=== PATIENT | female | born 1935 | race Caucasian/White ===

== ENCOUNTER 2017-05-19 11:40 | Emergency (ER) | payer MEDICARE, OTHER ==
[2017-05-19 12:36] VITALS: BP 139/67
--- NOTE | 2017-05-19 13:04 | EDM.PDOC ---
ED HPI GENERAL MEDICAL PROBLEM - General Chief Complaint: Neurological Problem Stated Complaint: DIZZY Time Seen by Provider: 05/19/17 12:45 Source of Information: Reports: Patient, Old Records, RN History Limitations: Reports: No Limitations - History of Present Illness INITIAL COMMENTS - FREE TEXT/NARRATIVE: 81 yo female presents with mild dizziness on and off for several weeks. Was seen earlier for this and sent to PT for Diamante's maneuvers. She says she didn't get much if any benefit from these maneuvers. Dizziness is worse with changes in position as when she bends over or rolls over in bed. Doesn't describe the dizziness as spinning and there is no nausea. Has a syncopal spell occurrence this past . returning from the bathroom in the night. Was not seen for this spell before today. It had never happened before or since. Doesn't recall feeling dizzy before passing out. Recalls for a short period of time it seemed she couldn't talk. When her ability to talk returned it was normal. Has no hx of cardiac dysrhythmias or stroke. No EDDY's. No seizure hx. No recent med changes. Has been trying to drink more water lately, but it has not changed her dizziness for the better or the worse. Onset: Unknown/Unsure Duration: Week(s):, Waxing/Waning Location: Reports: Head Quality: Reports: Other (no pain) Severity: Mild Improves with: Reports: Immobilization Worsens with: Reports: Movement Context: Reports: Other (no benefit from Diamante's maneuvers in PT) Associated Symptoms: Reports: Syncope (x one, not necessarily related to the current dizziness.). Denies: Chest Pain, Diaphoresis, Fever/Chills, Headaches, Nausea/Vomiting, Seizure, Shortness of Breath, Weakness Treatments [employer]: Reports: Other (see below) (Diamante's maneuvers in PT without benefit) - Related Data Allergies Allergy/AdvReac Type Severity Reaction Status Date / Time Penicillins Allergy Unknown Unknown Verified 05/19/17 12:22 hydromorphone HCl AdvReac Unknown unknown Verified 05/19/17 12:22 [From Dilaudid] Home Meds: Home Meds Tylenol 500 mg PO BEDTIME 01/06/13 [History] Hydrochlorothiazide [Hydrochlorothiazide] 25 mg PO DAILY 01/16/13 [History] Metoprolol Tartrate 50 mg PO TID 01/16/13 [History] hydrOXYzine HCl [Atarax] 10 mg PO BEDTIME 01/16/13 [History] Chlorthalidone 1 tab PO DAILY 05/19/17 [History] Meclizine [Antivert] 1 tab PO TID PRN 05/19/17 [History] Methimazole [Methimazole] 0.5 tab PO DAILY 05/19/17 [History] Past Medical History HEENT History: Reports: Cataract Musculoskeletal History: Reports: Back Pain, Chronic Neurological History: Reports: Vertigo Endocrine/Metabolic History: Reports: Hypothyroidism - Past Surgical History HEENT Surgical History: Reports: Tonsillectomy GI Surgical History: Reports: Appendectomy Female Surgical History: Reports: Hysterectomy Endocrine Surgical History: Reports: Thyroidectomy Musculoskeletal Surgical History: Reports: Knee Replacement Social & Family History - Tobacco Use Smoking Status *Q: Never Smoker Second Hand Smoke Exposure: No - Alcohol Use Days Per Week of Alcohol Use: 0 - Recreational Drug Use Recreational Drug Use: No ED ROS GENERAL - Review of Systems Review Of Systems: See Below Constitutional: Reports: No Symptoms HEENT: Reports: No Symptoms Respiratory: Reports: No Symptoms Cardiovascular: Reports: Syncope (x one last Sunday.) Endocrine: Reports: No Symptoms GI/Abdominal: Reports: No Symptoms : Reports: No Symptoms Musculoskeletal: Reports: No Symptoms Skin: Reports: No Symptoms Neurological: Reports: Dizziness (mild, intermittent), Trouble Speaking (only briefly after a syncopal spell last Sunday.). Denies: Headache, Numbness, Tingling Psychiatric: Reports: No Symptoms Hematologic/Lymphatic: Reports: No Symptoms ED EXAM, NEURO - Physical Exam Exam: See Below Exam Limited By: No Limitations General Appearance: Alert, WD/WN, No Apparent Distress Eye Exam: Bilateral Eye: EOMI, Normal Inspection, PERRL Ears: Normal External Exam, Normal Canal, Hearing Grossly Normal, Normal TMs Nose: Normal Inspection, Normal Mucosa, No Blood Throat/Mouth: Normal Inspection, Normal Lips, Normal Teeth, Normal Oropharynx, Normal Voice, No Airway Compromise Head Exam: Atraumatic, Normocephalic Neck: Normal Inspection, Supple, Non-Tender, Full Range of Motion. No: Carotid Bruit, Lymphadenopathy (R), Lymphadenopathy (L) Respiratory/Chest: No Respiratory Distress, Lungs Clear, Normal Breath Sounds, No Accessory Muscle Use Cardiovascular: Regular Rate, Rhythm, No Edema GI/Abdominal: Soft, Non-Tender Neurological: Alert, Normal Mood/Affect, CN II-XII Intact, Normal Gait, No Motor /Sensory Deficits, Oriented x 3 Back Exam: Normal Inspection Extremities: Normal Inspection, Normal Range of Motion, Non-Tender, No Pedal Edema Psychiatric: Normal Affect, Normal Mood Skin Exam: Warm, Dry, Intact, Normal Color, No Rash Course - Vital Signs Text/Narrative:: Orthostats normal Last Recorded V/S: Last Vital Signs Temp 36.6 C 05/19/17 12:34 Pulse 64 05/19/17 12:34 Resp 14 05/19/17 12:34 BP 139/67 05/19/17 12:34 Pulse Ox 97 05/19/17 12:34 Orthostatic Blood Pressure [ 139/74 Standing] Orthostatic Blood Pressure [ 130/72 Sitting] Orthostatic Blood Pressure [ 132/76 Supine] - Orders/Labs/Meds Orders: Active Orders 24 hr Category Date Time Status Orthostatic Vital Signs [RC] ASDIRECTED Care 05/19/17 12:41 Active Labs: Laboratory Tests 05/19/17 05/19/17 Range/Units 12:51 12:51 WBC 8.9 (4.5-11.0) K/uL RBC 4.30 (3.30-5.50) M/uL Hgb 12.8 (12.0-15.0) g/dL Hct 37.2 (36.0-48.0) % MCV 87 (80-98) fL MCH 30 (27-31) pg MCHC 34 (32-36) % Plt Count 276 (150-400) K/uL Sodium 134 L (140-148) mmol/L Potassium 3.6 (3.6-5.2) mmol/L Chloride 95 L (100-108) mmol/L Carbon Dioxide 29 (21-32) mmol/L Anion Gap 13.6 (5.0-14.0) mmol/L BUN 26 H (7-18) mg/dL Creatinine 1.4 H (0.6-1.0) mg/dL Est Cr Clr Drug Dosing 26.95 mL/min Estimated GFR (MDRD) 36 L (>60) Glucose 109 H (74-106) mg/dL Calcium 9.5 (8.5-10.1) mg/dL Troponin I < 0.017 (0.000-0.056) ng/mL Departure - Departure Time of Disposition: 14:00 Disposition: Home, Self-Care 01 Condition: Good Clinical Impression: BPV (benign positional vertigo) Qualifiers: Laterality: unspecified laterality Qualified Code(s): H81.10 - Benign paroxysmal vertigo, unspecified ear Syncope Qualifiers: Syncope type: unspecified Qualified Code(s): R55 - Syncope and collapse - Discharge Information Referrals: Gadiel Ortiz MD [Primary Care Provider] - Forms: ED Department Discharge - My Orders Last 24 Hours: My Active Orders 05/19/17 12:41 Orthostatic Vital Signs [RC] ASDIRECTED - Assessment/Plan Last 24 Hours: My Active Orders 05/19/17 12:41 Orthostatic Vital Signs [RC] ASDIRECTED
[2017-05-19] MEDS ORDERED: Aspirin 81 MG Tab.Chew PO ONE (14:00)
== END 2017-05-19 14:13 | disposition home or self-care (01) ==
LOC: JP.ED 11:40
DX: H81.10 Benign paroxysmal vertigo, unspecified ear (principal); E03.9 Hypothyroidism, unspecified; Z79.899 Other long term (current) drug therapy; Z88.0 Allergy status to penicillin; Z88.5 Allergy status to narcotic agent
CPT/HCPCS: 36415; 80048; 84484; 85027; 99284; A9270

== ENCOUNTER 2017-05-25 15:13 | Inpatient (IN) | payer MEDICARE, OTHER ==
[2017-05-25] MEDS ORDERED: Sodium Chloride 0.9% 1,000 ML IV SCH ×2 (16:45→18:30)
--- NOTE | 2017-05-25 17:12 | EDM.PDOC ---
ED HPI GENERAL MEDICAL PROBLEM - General Chief Complaint: General Stated Complaint: ILLNESS Time Seen by Provider: 05/25/17 17:07 Source of Information: Reports: Patient History Limitations: Reports: No Limitations - History of Present Illness INITIAL COMMENTS - FREE TEXT/NARRATIVE: Pt arrived with a history of being ill for the past 2-3 weeks. She is not eating. She gives a history of chronic constipatipon and left lower abdomanal pain. She has been sob. She has a history of falling 3 times in the last wwek/ The one episode was a true synopal episode and she did hit the left forehead area. She was not knocked out. She did have a stool this am and she states this was soft. She has not been having headaches. She has been taking fluids but not eating. She has lost 20 lbs in the last 2 weeks. She has been seen twice at the ER prior to this visit. Onset: Gradual Duration: Day(s): Location: Reports: Head, Abdomen, Other (pt has lost close to 20 lbs. She has passed out twice in the lasty week. ) Quality: Reports: Sharp, Stabbing, Other ( The pain has not been there all of the time. ) Associated Symptoms: Reports: Cough, Fever/Chills, Weakness, Other ( Pt has spiked a temp to 101 at times. ) - Related Data Allergies Allergy/AdvReac Type Severity Reaction Status Date / Time Penicillins Allergy Unknown Unknown Verified 05/25/17 15:31 hydromorphone HCl AdvReac Unknown unknown Verified 05/25/17 15:31 [From Dilaudid] Home Meds: Home Meds Tylenol 500 mg PO BEDTIME 01/06/13 [History] Hydrochlorothiazide [Hydrochlorothiazide] 25 mg PO DAILY 01/16/13 [History] Chlorthalidone 1 tab PO DAILY 05/19/17 [History] Methimazole [Methimazole] 0.5 tab PO DAILY 05/19/17 [History] Metoprolol Succinate 1 tab PO TID 05/25/17 [History] Sertraline [Zoloft] 1 tab PO DAILY 05/25/17 [History] Valsartan [Valsartan] 1 tab PO DAILY 05/25/17 [History] Past Medical History HEENT History: Reports: Cataract Musculoskeletal History: Reports: Back Pain, Chronic Neurological History: Reports: Vertigo Endocrine/Metabolic History: Reports: Hypothyroidism - Past Surgical History HEENT Surgical History: Reports: Tonsillectomy GI Surgical History: Reports: Appendectomy Female Surgical History: Reports: Hysterectomy Endocrine Surgical History: Reports: Thyroidectomy Musculoskeletal Surgical History: Reports: Knee Replacement Social & Family History - Tobacco Use Smoking Status *Q: Never Smoker Second Hand Smoke Exposure: No - Alcohol Use Days Per Week of Alcohol Use: 0 - Recreational Drug Use Recreational Drug Use: No ED ROS GENERAL - Review of Systems Review Of Systems: See Below Constitutional: Reports: Fever, Chills, Malaise, Decreased Appetite, Weight Loss , Other (pt has lost 20 lbs in the last 2 weeks. ) HEENT: Reports: No Symptoms Respiratory: Reports: No Symptoms Cardiovascular: Reports: No Symptoms Endocrine: Reports: No Symptoms GI/Abdominal: Reports: Abdominal Pain, Other (crampy abdomanal pain. ) : Reports: No Symptoms Musculoskeletal: Reports: No Symptoms Skin: Reports: No Symptoms Neurological: Reports: Other (pt is very weak ans somewhat slow to respond. ) Psychiatric: Reports: No Symptoms ED EXAM, GENERAL - Physical Exam Exam: See Below Free Text/Narrative:: pt arrived looking quite sluggish and pale. She is not her usuial perky self. Exam Limited By: No Limitations General Appearance: Alert, Anxious, Mild Distress Ears: Normal TMs Nose: Normal Inspection Throat/Mouth: Normal Inspection Head: Atraumatic Neck: Normal Inspection Respiratory/Chest: Other ( rales at the lung) Cardiovascular: Regular Rate, Rhythm GI/Abdominal: Tender, Other ( Pt has a left lower abdomanal tenderness. She is not markedly guarded. ) (Female) Exam: Deferred Rectal (Female) Exam: Other (pt had a soft stool this am. ) Extremities: Normal Inspection Neurological: Alert, Oriented, Normal Cognition Psychiatric: Flat Affect Course - Vital Signs Last Recorded V/S: Last Vital Signs Temp 36.2 C 05/26/17 02:12 Pulse 78 05/26/17 02:12 Resp 18 05/26/17 02:12 BP 138/77 05/26/17 02:12 Pulse Ox 94 L 05/26/17 02:12 Orthostatic Blood Pressure [ 160/72 Standing] Orthostatic Blood Pressure [ 162/82 Sitting] Orthostatic Blood Pressure [ 160/79 Supine] - Orders/Labs/Meds Orders: Active Orders 24 hr Category Date Time Status Abdomen Pelvis w Cont [CT] Stat Exams 05/25/17 17:51 Taken Ang Chest [CT] Stat Exams 05/25/17 17:47 Taken Chest 2V [CR] Stat Exams 05/25/17 16:30 Taken CULTURE BLOOD [BC] Urgent Lab 05/25/17 19:18 Received CULTURE BLOOD [BC] Urgent Lab 05/25/17 19:18 Received CULTURE URINE [RM] Stat Lab 05/25/17 21:01 Received cefTRIAXone [Rocephin] 1 gm Med 05/25/17 20:00 Active Sodium Chloride 0.9% [Normal Saline] 50 ml IV Q24H Blood Culture x2 Reflex Set [OM.PC] Urgent Oth 05/25/17 19:18 Ordered EKG 12 Lead [EK] Routine Ther 05/25/17 17:36 Stop Req Medication Orders Acetaminophen (Tylenol) 650 mg PO Q4H PRN PRN Reason: Pain (Mild 1-3)/fever Last Admin: 05/26/17 04:03 Dose: 650 mg Admin: 05/25/17 22:15 Dose: 650 mg Chlorthalidone (Chlorthalidone) 25 mg PO DAILY [facility] Enoxaparin Sodium (Lovenox) 40 mg SUBCUT DAILY [facility] Last Admin: 05/25/17 22:36 Dose: 40 mg Hydrochlorothiazide (Hydrochlorothiazide) 25 mg PO DAILY [facility] Ceftriaxone Sodium 1 gm/ (Sodium Chloride) 50 mls @ 100 mls/hr IV Q24H [facility] Last Admin: 05/25/17 22:16 Dose: 100 mls/hr Sodium Chloride (Normal Saline) 1,000 mls @ 125 mls/hr IV ASDIRECTED [facility] Last Admin: 05/26/17 04:09 Dose: 125 mls/hr Infusion: 05/26/17 04:09 Dose: 125 mls/hr Admin: 05/25/17 22:14 Dose: 125 mls/hr Magnesium Hydroxide (Milk Of Magnesia) 30 ml PO Q12H PRN PRN Reason: Constipation Methimazole (Methimazole) 2.5 mg PO DAILY [facility] Metoprolol Succinate (Toprol Xl) mg PO TID [facility] Ondansetron HCl (Zofran) 4 mg IV Q4H PRN PRN Reason: Nausea/Vomiting Last Admin: 05/26/17 04:03 Dose: 4 mg Admin: 05/25/17 22:14 Dose: 4 mg Oxycodone HCl (Oxycodone) 5 mg PO Q4H PRN PRN Reason: Pain (moderate 4-6) Polyethylene Glycol (Miralax) 17 gm PO DAILY PRN PRN Reason: Constipation Senna/Docusate Sodium (Senna Plus) 1 tab PO BID PRN PRN Reason: Constipation Sertraline HCl (Zoloft) 25 mg PO DAILY [facility] Sodium Chloride (Saline Flush) 10 ml FLUSH ASDIRECTED PRN PRN Reason: Keep Vein Open Valsartan (Diovan) 320 mg PO DAILY [facility] Labs: Laboratory Tests 05/25/17 05/25/17 05/25/17 Range/Units 16:29 16:29 16:29 WBC 17.1 H (4.5-11.0) K/uL RBC 3.99 (3.30-5.50) M/uL Hgb 12.1 (12.0-15.0) g/dL Hct 35.2 L (36.0-48.0) % MCV 88 (80-98) fL MCH 30 (27-31) pg MCHC 34 (32-36) % Plt Count 256 (150-400) K/uL Add Manual Diff Yes Neutrophils % (Manual) 77 H (36-66) % Band Neutrophils % 10 (5-11) % Lymphocytes % (Manual) 5 L (24-44) % Monocytes % (Manual) 8 H (2-6) % D-Dimer, Quantitative (0.0-400.0) ng/mL Sodium 137 L (140-148) mmol/L Potassium 2.6 L* (3.6-5.2) mmol/L Chloride 98 L (100-108) mmol/L Carbon Dioxide 28 (21-32) mmol/L Anion Gap 13.6 (5.0-14.0) mmol/L BUN 25 H (7-18) mg/dL Creatinine 1.2 H (0.6-1.0) mg/dL Est Cr Clr Drug Dosing 31.45 mL/min Estimated GFR (MDRD) 43 L (>60) Glucose 124 H (74-106) mg/dL Lactic Acid (0.4-2.0) mmol/L Calcium 9.0 (8.5-10.1) mg/dL Total Bilirubin 0.5 (0.2-1.0) mg/dL AST 17 (15-37) U/L ALT 20 (12-78) U/L Alkaline Phosphatase 83 (46-116) U/L Troponin I (0.000-0.056) ng/mL C-Reactive Protein 30.20 H (0.0-0.3) mg/dL Total Protein 6.3 L (6.4-8.2) g/dL Albumin 2.6 L (3.4-5.0) g/dL Globulin 3.7 H (2.3-3.5) g/dL Albumin/Globulin Ratio 0.7 L (1.2-2.2) TSH, Ultra Sensitive (0.358-3.740) uIU/mL Urine Color Urine Appearance Urine pH (4.5-8.0) Ur Specific Dearing (1.008-1.030) Urine Protein (NEGATIVE) mg/dL Urine Glucose (UA) (NEGATIVE) mg/dL Urine Ketones (NEGATIVE) mg/dL Urine Occult Blood (NEGATIVE) Urine Nitrite (NEGATIVE) Urine Bilirubin (NEGATIVE) Urine Urobilinogen (NORMAL) mg/dL Ur Leukocyte Esterase (NEGATIVE) Urine RBC (0-5) Urine WBC (0-5) Ur Epithelial Cells Amorphous Sediment Urine Bacteria Urine Mucus 05/25/17 05/25/17 05/25/17 Range/Units 17:15 17:37 19:19 WBC (4.5-11.0) K/uL RBC (3.30-5.50) M/uL Hgb (12.0-15.0) g/dL Hct (36.0-48.0) % MCV (80-98) fL MCH (27-31) pg MCHC (32-36) % Plt Count (150-400) K/uL Add Manual Diff Neutrophils % (Manual) (36-66) % Band Neutrophils % (5-11) % Lymphocytes % (Manual) (24-44) % Monocytes % (Manual) (2-6) % D-Dimer, Quantitative 1800 H (0.0-400.0) ng/mL Sodium (140-148) mmol/L Potassium (3.6-5.2) mmol/L Chloride (100-108) mmol/L Carbon Dioxide (21-32) mmol/L Anion Gap (5.0-14.0) mmol/L BUN (7-18) mg/dL Creatinine (0.6-1.0) mg/dL Est Cr Clr Drug Dosing mL/min Estimated GFR (MDRD) (>60) Glucose (74-106) mg/dL Lactic Acid (0.4-2.0) mmol/L Calcium (8.5-10.1) mg/dL Total Bilirubin (0.2-1.0) mg/dL AST (15-37) U/L ALT (12-78) U/L Alkaline Phosphatase (46-116) U/L Troponin I < 0.017 (0.000-0.056) ng/mL C-Reactive Protein (0.0-0.3) mg/dL Total Protein (6.4-8.2) g/dL Albumin (3.4-5.0) g/dL Globulin (2.3-3.5) g/dL Albumin/Globulin Ratio (1.2-2.2) TSH, Ultra Sensitive (0.358-3.740) uIU/mL Urine Color Yellow Urine Appearance Cloudy Urine pH 5.0 (4.5-8.0) Ur Specific Dearing 1.010 (1.008-1.030) Urine Protein Negative (NEGATIVE) mg/dL Urine Glucose (UA) Normal (NEGATIVE) mg/dL Urine Ketones Negative (NEGATIVE) mg/dL Urine Occult Blood Moderate (NEGATIVE) Urine Nitrite Negative (NEGATIVE) Urine Bilirubin Negative (NEGATIVE) Urine Urobilinogen Normal (NORMAL) mg/dL Ur Leukocyte Esterase Large (NEGATIVE) Urine RBC Not seen (0-5) Urine WBC Packed H (0-5) Ur Epithelial Cells Not seen Amorphous Sediment Not seen Urine Bacteria Moderate Urine Mucus Not seen 05/25/17 05/25/17 Range/Units 19:22 19:22 WBC (4.5-11.0) K/uL RBC (3.30-5.50) M/uL Hgb (12.0-15.0) g/dL Hct (36.0-48.0) % MCV (80-98) fL MCH (27-31) pg MCHC (32-36) % Plt Count (150-400) K/uL Add Manual Diff Neutrophils % (Manual) (36-66) % Band Neutrophils % (5-11) % Lymphocytes % (Manual) (24-44) % Monocytes % (Manual) (2-6) % D-Dimer, Quantitative (0.0-400.0) ng/mL Sodium (140-148) mmol/L Potassium (3.6-5.2) mmol/L Chloride (100-108) mmol/L Carbon Dioxide (21-32) mmol/L Anion Gap (5.0-14.0) mmol/L BUN (7-18) mg/dL Creatinine (0.6-1.0) mg/dL Est Cr Clr Drug Dosing mL/min Estimated GFR (MDRD) (>60) Glucose (74-106) mg/dL Lactic Acid 1.4 (0.4-2.0) mmol/L Calcium (8.5-10.1) mg/dL Total Bilirubin (0.2-1.0) mg/dL AST (15-37) U/L ALT (12-78) U/L Alkaline Phosphatase (46-116) U/L Troponin I (0.000-0.056) ng/mL C-Reactive Protein (0.0-0.3) mg/dL Total Protein (6.4-8.2) g/dL Albumin (3.4-5.0) g/dL Globulin (2.3-3.5) g/dL Albumin/Globulin Ratio (1.2-2.2) TSH, Ultra Sensitive 0.194 L (0.358-3.740) uIU/mL Urine Color Urine Appearance Urine pH (4.5-8.0) Ur Specific Dearing (1.008-1.030) Urine Protein (NEGATIVE) mg/dL Urine Glucose (UA) (NEGATIVE) mg/dL Urine Ketones (NEGATIVE) mg/dL Urine Occult Blood (NEGATIVE) Urine Nitrite (NEGATIVE) Urine Bilirubin (NEGATIVE) Urine Urobilinogen (NORMAL) mg/dL Ur Leukocyte Esterase (NEGATIVE) Urine RBC (0-5) Urine WBC (0-5) Ur Epithelial Cells Amorphous Sediment Urine Bacteria Urine Mucus Meds: Medications Generic Name Dose Route Start Last Admin Trade Name Freq PRN Reason Stop Dose Admin Acetaminophen 650 mg 05/25/17 21:29 05/26/17 04:03 Tylenol PO 650 mg Q4H PRN Administration Pain (Mild 1-3)/fever Chlorthalidone 25 mg 05/26/17 09:00 Chlorthalidone PO DAILY [facility] Enoxaparin Sodium 40 mg 05/25/17 21:29 05/25/17 22:36 Lovenox SUBCUT 40 mg DAILY [facility] Administration Hydrochlorothiazide 25 mg 05/26/17 09:00 Hydrochlorothiazide PO DAILY [facility] Ceftriaxone Sodium 1 gm/ 50 mls @ 100 mls/hr 05/25/17 20:00 05/25/17 22:16 Sodium Chloride IV 100 mls/hr Q24H [facility] Administration Sodium Chloride 1,000 mls @ 125 mls/hr 05/25/17 21:29 05/26/17 04:09 Normal Saline IV 125 mls/hr ASDIRECTED [facility] Administration Magnesium Hydroxide 30 ml 05/25/17 21:29 Milk Of Magnesia PO Q12H PRN Constipation Methimazole 2.5 mg 05/26/17 09:00 Methimazole PO DAILY [facility] Metoprolol Succinate mg 05/25/17 21:29 Toprol Xl PO TID [facility] Ondansetron HCl 4 mg 05/25/17 21:29 05/26/17 04:03 Zofran IV 4 mg Q4H PRN Administration Nausea/Vomiting Oxycodone HCl 5 mg 05/25/17 21:29 Oxycodone PO Q4H PRN Pain (moderate 4-6) Polyethylene Glycol 17 gm 05/25/17 21:29 Miralax PO DAILY PRN Constipation Senna/Docusate Sodium 1 tab 05/25/17 21:29 Senna Plus PO BID PRN Constipation Sertraline HCl 25 mg 05/26/17 09:00 Zoloft PO DAILY [facility] Sodium Chloride 10 ml 05/25/17 21:29 Saline Flush FLUSH ASDIRECTED PRN Keep Vein Open Valsartan 320 mg 05/26/17 09:00 Diovan PO DAILY [facility] Discontinued Medications Generic Name Dose Route Start Last Admin Trade Name Freq PRN Reason Stop Dose Admin Sodium Chloride 1,000 mls @ 999 mls/hr 05/25/17 16:45 05/25/17 17:09 Normal Saline IV 999 mls/hr ASDIRECTED [facility] Administration Potassium Chloride 20 meq/ 100 mls @ 50 mls/hr 05/25/17 17:18 05/25/17 17:35 Premix IV 05/25/17 19:17 50 mls/hr ONETIME ONE Administration Sodium Chloride 100 mls @ 3 mls/sec 05/25/17 18:15 05/25/17 18:32 Normal Saline IV 3 mls/sec ASDIRECTED [facility] Administration Sodium Chloride 1,000 mls @ 999 mls/hr 05/25/17 18:30 05/25/17 19:51 Normal Saline IV 999 mls/hr ASDIRECTED [facility] Administration Potassium Chloride 40 meq/ 100 mls @ 25 mls/hr 05/25/17 21:29 05/25/17 22:59 Premix IV 05/26/17 01:28 Not Given ONETIME ONE Potassium Chloride 20 meq/ 102 mls @ 51 mls/hr 05/25/17 23:00 05/26/17 01:10 Lidocaine HCl 2 ml/ Premix IV 05/26/17 00:59 51 mls/hr Q1H [facility] Administration Potassium Chloride Confirm 05/25/17 22:56 05/25/17 23:53 Kcl 20 Meq In Water 100 Ml Administered 05/25/17 22:57 Not Given Dose 200 mls @ as directed .ROUTE .STK-MED ONE Iopamidol 100 ml 05/25/17 18:15 05/25/17 18:33 Isovue-370 (76%) IV 100 ml . DIRECTED [facility] Administration Lidocaine HCl Confirm 05/25/17 22:57 05/25/17 23:05 Xylocaine-Mpf 1% Administered 05/25/17 22:58 5 ml Dose Administration 5 ml .ROUTE .STK-MED ONE Potassium Chloride 20 meq 05/25/17 17:18 05/25/17 17:35 Klor-Con M20 PO 05/25/17 17:19 20 meq ONETIME ONE Administration - Re-Assessments/Exams Free Text/Narrative Re-Assessment/Exam: 05/25/17 18:33 pt was found to have a k of 2.6. Pt has left lower abdomanal pain. She has a very high crp of greater than 30. Her wbc is 17,000 05/25/17 19:20 cat scan shows a small amount of pleural fluid, There is a thyroid nodule, there is a structure ot lucency at t11. She has some chnges in her kidneys that look like she is infected. 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, Dehydration, Hypokalemia , Thyroid nodule, Pleural effusion, bilateral - Discharge Information - My Orders Last 24 Hours: My Active Orders 05/25/17 16:30 Chest 2V [CR] Stat 05/25/17 17:36 EKG 12 Lead [EK] Routine 05/25/17 17:47 Ang Chest [CT] Stat 05/25/17 17:51 Abdomen Pelvis w Cont [CT] Stat 05/25/17 19:18 CULTURE BLOOD [BC] Urgent CULTURE BLOOD [BC] Urgent Blood Culture x2 Reflex Set [OM.PC] Urgent - Assessment/Plan Last 24 Hours: My Active Orders 05/25/17 16:30 Chest 2V [CR] Stat 05/25/17 17:36 EKG 12 Lead [EK] Routine 05/25/17 17:47 Ang Chest [CT] Stat 05/25/17 17:51 Abdomen Pelvis w Cont [CT] Stat 05/25/17 19:18 CULTURE BLOOD [BC] Urgent CULTURE BLOOD [BC] Urgent Blood Culture x2 Reflex Set [OM.PC] Urgent
[2017-05-25] MEDS ORDERED: Potassium Chloride 20 MEQ Tab.ER PO ONE (17:18)
[2017-05-25] MEDS ORDERED: Potassium Chloride 20 MEQ in Premix Bag 1 BAG IV ONE (17:18)
[2017-05-25] MEDS ORDERED: Iopamidol 755 Mg/ML 100 ML Bottle IV SCH (18:15)
[2017-05-25] MEDS ORDERED: Sodium Chloride 0.9% 100 ML IV SCH (18:15)
--- NOTE | 2017-05-25 20:38 | PCM.HP ---
H&P History of Present Illness - General Date of Service: 05/25/17 Admit Problem/Dx: Admission Diagnosis/Problem Admission Diagnosis/Problem Cystitis Source of Information: Patient, Family, Provider, RN Notes Reviewed History Limitations: Reports: No Limitations - History of Present Illness Initial Comments - Free Text/Narative: Ms. Mullins is a 81-year-old woman who is admitted through the emergency department with weakness, fever, and chills for the past [address] scan of the abdomen shows evidence of bladder wall thickening consistent with cystitis, urinalysis shows evidence of urinary tract infection. White blood cell count is elevated, lactic acid level normal. Vital signs are otherwise stable with no evidence of active sepsis. - Related Data Allergies/Adverse Reactions: Allergies Allergy/AdvReac Type Severity Reaction Status Date / Time Penicillins Allergy Unknown Unknown Verified 05/25/17 15:31 hydromorphone HCl AdvReac Unknown unknown Verified 05/25/17 15:31 [From Dilaudid] Home Medications: Home Meds Tylenol 500 mg PO BEDTIME 01/06/13 [History] Hydrochlorothiazide [Hydrochlorothiazide] 25 mg PO DAILY 01/16/13 [History] Chlorthalidone 1 tab PO DAILY 05/19/17 [History] Methimazole [Methimazole] 0.5 tab PO DAILY 05/19/17 [History] Metoprolol Succinate 1 tab PO TID 05/25/17 [History] Sertraline [Zoloft] 1 tab PO DAILY 05/25/17 [History] Valsartan [Valsartan] 1 tab PO DAILY 05/25/17 [History] Past Medical History HEENT History: Reports: Cataract Musculoskeletal History: Reports: Back Pain, Chronic Neurological History: Reports: Vertigo Endocrine/Metabolic History: Reports: Hypothyroidism - Past Surgical History HEENT Surgical History: Reports: Tonsillectomy GI Surgical History: Reports: Appendectomy Female Surgical History: Reports: Hysterectomy Endocrine Surgical History: Reports: Thyroidectomy Musculoskeletal Surgical History: Reports: Knee Replacement Social & Family History - Tobacco Use Smoking Status *Q: Never Smoker Second Hand Smoke Exposure: No - Alcohol Use Days Per Week of Alcohol Use: 0 - Recreational Drug Use Recreational Drug Use: No H&P Review of Systems - Review of Systems: Review Of Systems: See Below General: Reports: Fever, Chills, Weakness, Diaphoresis, Decreased Appetite, Weight Loss HEENT: Reports: No Symptoms Pulmonary: Reports: No Symptoms Cardiovascular: Reports: No Symptoms Gastrointestinal: Reports: Abdominal Pain (Suprapubic), Anorexia, Constipation, Nausea, Vomiting. Denies: Black Stool, Bloody Stool, Diarrhea, Difficulty Swallowing, Distension Genitourinary: Reports: Dysuria, Frequency, Urgency. Denies: Hematuria, Retention, Discharge Musculoskeletal: Reports: No Symptoms Skin: Reports: No Symptoms Psychiatric: Reports: No Symptoms Neurological: Reports: No Symptoms Hematologic/Lymphatic: Reports: No Symptoms Immunologic: Reports: No Symptoms Exam - Exam Exam: See Below - Vital Signs Vital Signs: Last Vital Signs Temp 98.5 F 05/25/17 15:44 Pulse 77 05/25/17 17:24 Resp 16 05/25/17 16:10 BP 140/65 05/25/17 18:01 Pulse Ox 91 L 05/25/17 17:07 Orthostatic Blood Pressure [ 160/72 Standing] Orthostatic Blood Pressure [ 162/82 Sitting] Orthostatic Blood Pressure [ 160/79 Supine] Weight: 147 lb - Exam Quality Assessment: DVT Prophylaxis General: Alert, Oriented, Cooperative, Moderate Distress HEENT: Conjunctiva Clear, Hearing Intact, Normal Nasal Septum, Posterior Pharynx Clear, Pupils Equal. No: Mucosa Moist & [place] Neck: Supple, Trachea Midline, +2 Carotid Pulse wo Bruit Lungs: Clear to Auscultation, Normal Respiratory Effort Cardiovascular: Regular Rate, Regular Rhythm, Normal S1, Normal S2. No: Systolic Murmur, Diastolic Murmur GI/Abdominal Exam: Soft, No Organomegaly, Tender. No: Distended, Guarding, Rigid, Rebound Extremities: Non-Tender, No Pedal Edema Skin: Warm, Dry, Intact Neurological: Cranial Nerves Intact, Strength Equal Bilateral, Normal Speech, Normal Tone, Sensation Intact. No: Focal Deficit Neuro Extensive - Mental Status: Alert, Oriented x3, Normal Mood/Affect, Normal Cognition, Memory Intact - Patient Data Lab Results Last 24 hrs: Laboratory Results - last 24 hr 05/25/17 05/25/17 05/25/17 Range/Units 16:29 16:29 16:29 WBC 17.1 H (4.5-11.0) K/uL RBC 3.99 (3.30-5.50) M/uL Hgb 12.1 (12.0-15.0) g/dL Hct 35.2 L (36.0-48.0) % MCV 88 (80-98) fL MCH 30 (27-31) pg MCHC 34 (32-36) % Plt Count 256 (150-400) K/uL Add Manual Diff Yes Neutrophils % (Manual) 77 H (36-66) % Band Neutrophils % 10 (5-11) % Lymphocytes % (Manual) 5 L (24-44) % Monocytes % (Manual) 8 H (2-6) % D-Dimer, Quantitative (0.0-400.0) ng/mL Sodium 137 L (140-148) mmol/L Potassium 2.6 L* (3.6-5.2) mmol/L Chloride 98 L (100-108) mmol/L Carbon Dioxide 28 (21-32) mmol/L Anion Gap 13.6 (5.0-14.0) mmol/L BUN 25 H (7-18) mg/dL Creatinine 1.2 H (0.6-1.0) mg/dL Est Cr Clr Drug Dosing 31.45 mL/min Estimated GFR (MDRD) 43 L (>60) Glucose 124 H (74-106) mg/dL Lactic Acid (0.4-2.0) mmol/L Calcium 9.0 (8.5-10.1) mg/dL Total Bilirubin 0.5 (0.2-1.0) mg/dL AST 17 (15-37) U/L ALT 20 (12-78) U/L Alkaline Phosphatase 83 (46-116) U/L Troponin I (0.000-0.056) ng/mL C-Reactive Protein 30.20 H (0.0-0.3) mg/dL Total Protein 6.3 L (6.4-8.2) g/dL Albumin 2.6 L (3.4-5.0) g/dL Globulin 3.7 H (2.3-3.5) g/dL Albumin/Globulin Ratio 0.7 L (1.2-2.2) TSH, Ultra Sensitive (0.358-3.740) uIU/mL Urine Color Urine Appearance Urine pH (4.5-8.0) Ur Specific [place] (1.008-1.030) Urine Protein (NEGATIVE) mg/dL Urine Glucose (UA) (NEGATIVE) mg/dL Urine Ketones (NEGATIVE) mg/dL Urine Occult Blood (NEGATIVE) Urine Nitrite (NEGATIVE) Urine Bilirubin (NEGATIVE) Urine Urobilinogen (NORMAL) mg/dL Ur Leukocyte Esterase (NEGATIVE) Urine RBC (0-5) Urine WBC (0-5) Ur Epithelial Cells Amorphous Sediment Urine Bacteria Urine Mucus 05/25/17 05/25/17 05/25/17 Range/Units 17:15 17:37 19:19 WBC (4.5-11.0) K/uL RBC (3.30-5.50) M/uL Hgb (12.0-15.0) g/dL Hct (36.0-48.0) % MCV (80-98) fL MCH (27-31) pg MCHC (32-36) % Plt Count (150-400) K/uL Add Manual Diff Neutrophils % (Manual) (36-66) % Band Neutrophils % (5-11) % Lymphocytes % (Manual) (24-44) % Monocytes % (Manual) (2-6) % D-Dimer, Quantitative 1800 H (0.0-400.0) ng/mL Sodium (140-148) mmol/L Potassium (3.6-5.2) mmol/L Chloride (100-108) mmol/L Carbon Dioxide (21-32) mmol/L Anion Gap (5.0-14.0) mmol/L BUN (7-18) mg/dL Creatinine (0.6-1.0) mg/dL Est Cr Clr Drug Dosing mL/min Estimated GFR (MDRD) (>60) Glucose (74-106) mg/dL Lactic Acid (0.4-2.0) mmol/L Calcium (8.5-10.1) mg/dL Total Bilirubin (0.2-1.0) mg/dL AST (15-37) U/L ALT (12-78) U/L Alkaline Phosphatase (46-116) U/L Troponin I < 0.017 (0.000-0.056) ng/mL C-Reactive Protein (0.0-0.3) mg/dL Total Protein (6.4-8.2) g/dL Albumin (3.4-5.0) g/dL Globulin (2.3-3.5) g/dL Albumin/Globulin Ratio (1.2-2.2) TSH, Ultra Sensitive (0.358-3.740) uIU/mL Urine Color Yellow Urine Appearance Cloudy Urine pH 5.0 (4.5-8.0) Ur Specific [place] 1.010 (1.008-1.030) Urine Protein Negative (NEGATIVE) mg/dL Urine Glucose (UA) Normal (NEGATIVE) mg/dL Urine Ketones Negative (NEGATIVE) mg/dL Urine Occult Blood Moderate (NEGATIVE) Urine Nitrite Negative (NEGATIVE) Urine Bilirubin Negative (NEGATIVE) Urine Urobilinogen Normal (NORMAL) mg/dL Ur Leukocyte Esterase Large (NEGATIVE) Urine RBC Not seen (0-5) Urine WBC Packed H (0-5) Ur Epithelial Cells Not seen Amorphous Sediment Not seen Urine Bacteria Moderate Urine Mucus Not seen 05/25/17 05/25/17 Range/Units 19:22 19:22 WBC (4.5-11.0) K/uL RBC (3.30-5.50) M/uL Hgb (12.0-15.0) g/dL Hct (36.0-48.0) % MCV (80-98) fL MCH (27-31) pg MCHC (32-36) % Plt Count (150-400) K/uL Add Manual Diff Neutrophils % (Manual) (36-66) % Band Neutrophils % (5-11) % Lymphocytes % (Manual) (24-44) % Monocytes % (Manual) (2-6) % D-Dimer, Quantitative (0.0-400.0) ng/mL Sodium (140-148) mmol/L Potassium (3.6-5.2) mmol/L Chloride (100-108) mmol/L Carbon Dioxide (21-32) mmol/L Anion Gap (5.0-14.0) mmol/L BUN (7-18) mg/dL Creatinine (0.6-1.0) mg/dL Est Cr Clr Drug Dosing mL/min Estimated GFR (MDRD) (>60) Glucose (74-106) mg/dL Lactic Acid 1.4 (0.4-2.0) mmol/L Calcium (8.5-10.1) mg/dL Total Bilirubin (0.2-1.0) mg/dL AST (15-37) U/L ALT (12-78) U/L Alkaline Phosphatase (46-116) U/L Troponin I (0.000-0.056) ng/mL C-Reactive Protein (0.0-0.3) mg/dL Total Protein (6.4-8.2) g/dL Albumin (3.4-5.0) g/dL Globulin (2.3-3.5) g/dL Albumin/Globulin Ratio (1.2-2.2) TSH, Ultra Sensitive 0.194 L (0.358-3.740) uIU/mL Urine Color Urine Appearance Urine pH (4.5-8.0) Ur Specific [place] (1.008-1.030) Urine Protein (NEGATIVE) mg/dL Urine Glucose (UA) (NEGATIVE) mg/dL Urine Ketones (NEGATIVE) mg/dL Urine Occult Blood (NEGATIVE) Urine Nitrite (NEGATIVE) Urine Bilirubin (NEGATIVE) Urine Urobilinogen (NORMAL) mg/dL Ur Leukocyte Esterase (NEGATIVE) Urine RBC (0-5) Urine WBC (0-5) Ur Epithelial Cells Amorphous Sediment Urine Bacteria Urine Mucus Result Diagrams: 05/25/17 16:29 05/25/17 16:29 Tray Results Last 24 hrs: Microbiology 05/25/17 17:10 Influenza Type A Antigen Screen - Final Nasopharyngeal Swab - Nare, Unspecified NEGATIVE INFLUENZA A VIRUS AG Influenza Type B Antigen Screen - Final NEGATIVE INFLUENZA B VIRUS AG *Q Meaningful Use (ADM) - VTE *Q VTE Criteria *Q: - VTE Risk Assess *Q Each Risk Factor Represents 1 Point: Obesity ( BMI > 25 kg/m2) Total Score 1 Point Risk Factors: 1 Each Risk Factor Represents 2 Points: None Total Score 2 Point Risk Factors: 0 Each Risk Factor Represents 3 Points: Age 75 Years or Greater Total Score 3 Point Risk Factors: 3 Each Risk Factor Represents 5 Points: None Total Score 5 Point Risk Factors: 0 Venous Thromboembolism Risk Factor Score *Q: 4 - Stroke *Q Stroke Criteria *Q: - AMI *Q AMI Criteria *Q: Problem List Initiated/Reviewed/Updated: Yes Orders Last 24hrs: Active Orders 24 hr Category Date Time Status Patient Status Manage Transfer [TRANSFER] Routine ADT 05/25/17 20:25 Ordered EKG Documentation Completion [RC] ASDIRECTED Care 05/25/17 17:36 Active Orthostatic Vital Signs [RC] ASDIRECTED Care 05/25/17 17:31 Active Abdomen Pelvis w Cont [CT] Stat Exams 05/25/17 17:51 Taken Abdomen Pelvis wo Cont [CT] Stat Exams 05/25/17 17:30 Stop Req Ang Chest [CT] Stat Exams 05/25/17 17:47 Taken Chest 2V [CR] Stat Exams 05/25/17 16:30 Taken CULTURE BLOOD [BC] Urgent Lab 05/25/17 19:18 Received CULTURE BLOOD [BC] Urgent Lab 05/25/17 19:18 Received CULTURE URINE [RM] Stat Lab 05/25/17 20:24 Uncollected Iopamidol [Isovue-370 (76%)] Med 05/25/17 18:15 Active 100 ml IV . DIRECTED Sodium Chloride 0.9% [Normal Saline] 1,000 ml Med 05/25/17 16:45 Active IV ASDIRECTED Sodium Chloride 0.9% [Normal Saline] 1,000 ml Med 05/25/17 18:30 Active IV ASDIRECTED Sodium Chloride 0.9% [Normal Saline] 100 ml Med 05/25/17 18:15 Active IV ASDIRECTED cefTRIAXone [Rocephin] 1 gm Med 05/25/17 20:00 Active Sodium Chloride 0.9% [Normal Saline] 50 ml IV Q24H Blood Culture x2 Reflex Set [OM.PC] Urgent Oth 05/25/17 19:18 Ordered Resuscitation Status Routine Resus Stat 05/25/17 20:27 Ordered EKG 12 Lead [EK] Routine Ther 05/25/17 17:36 Ordered Medication Orders Sodium Chloride (Normal Saline) 1,000 mls @ 999 mls/hr IV ASDIRECTED [facility] Last Admin: 05/25/17 17:09 Dose: 999 mls/hr Sodium Chloride (Normal Saline) 100 mls @ 3 mls/sec IV ASDIRECTED [facility] Last Admin: 05/25/17 18:32 Dose: 3 mls/sec Sodium Chloride (Normal Saline) 1,000 mls @ 999 mls/hr IV ASDIRECTED [facility] Last Admin: 05/25/17 19:51 Dose: 999 mls/hr Ceftriaxone Sodium 1 gm/ (Sodium Chloride) 50 mls @ 100 mls/hr IV Q24H [facility] Iopamidol (Isovue-370 (76%)) 100 ml IV . DIRECTED [facility] Last Admin: 05/25/17 18:33 Dose: 100 ml Assessment/Plan Comment:: ASSESSMENT AND PLAN SEVERE CYSTITIS-symptoms present for the past 6 days, now has developed profound weakness. History of fever, chills, sweats, nausea, vomiting, which have progressively become worse since last weekend. No evidence of sepsis on current evaluation. -Blood and urine cultures pending -IV fluids for hydration -IV Rocephin 1 g every 24 hours -Pain and anti-medic therapy as needed HYPOKALEMIA -IV potassium replacement -Repeat potassium level in a.m. HYPERTENSION -Continue outpatient medical regimen MAINTENANCE ISSUES -DVT prophylaxis; Lovenox 40 mg subcutaneous daily -GI prophylaxis; not indicated -De Luna catheter; not indicated -Nutrition; regular diet -Nicotine dependence; not required CODE STATUS-FULL CODE ADMISSION STATUS-patient will be admitted to inpatient status, expect at least a 2 night hospital stay for evaluation and management of problems as outlined above. At the time of this admission I do not reasonably expected evaluation and management of this problem will require more than a 96 hour hospital stay. DISPOSITION-anticipate discharge to home after the hospital stay. PRIMARY CARE PROVIDER-Som Mcneil
[2017-05-25] MEDS ORDERED: Potassium Chloride 40 MEQ in Premix Bag 1 BAG IV ONE (21:29)
[2017-05-25] MEDS ORDERED: Sodium Chloride 0.9% 10 ML Syringe FLUSH PRN (21:29)
[2017-05-25] MEDS ORDERED: Magnesium Hydroxide 400 MG/5 ML Susp 30 ML Cup PO PRN (21:29)
[2017-05-25] MEDS ORDERED: Polyethylene Glycol 3350 Powder 17 GM Packet PO PRN (21:29)
[2017-05-25] MEDS ORDERED: Enoxaparin 40 MG/0.4 ML Syringe SUBCUT SCH (21:29)
[2017-05-25] MEDS: Ondansetron 4 MG/2 ML SDV IV PRN (22:14)
[2017-05-25] MEDS: Sodium Chloride 0.9% 1,000 ML IV SCH (22:14)
[2017-05-25] MEDS: Acetaminophen 325 MG Tab PO PRN (22:15)
[2017-05-25] MEDS: cefTRIAXone 1 GM in Sodium Chloride 0.9% 50 ML IV SCH (22:16)
[2017-05-25] MEDS ORDERED: Potassium Chloride 40 MEQ/20 ML SDV IV SCH (22:45)
[2017-05-25] MEDS: Potassium Chloride 20 MEQ, Lidocaine 1% 2 ML in Premix Bag 1 BAG IV SCH (23:05)
[2017-05-26] MEDS: Potassium Chloride 20 MEQ, Lidocaine 1% 2 ML in Premix Bag 1 BAG IV SCH (01:10)
[2017-05-26] MEDS: Ondansetron 4 MG/2 ML SDV IV PRN (04:03)
[2017-05-26] MEDS: Acetaminophen 325 MG Tab PO PRN ×3 (04:03→19:25)
[2017-05-26] MEDS: Sodium Chloride 0.9% 1,000 ML IV SCH (04:09)
[2017-05-26] MEDS ORDERED: Methimazole 5 MG Tab PO SCH (09:00)
[2017-05-26] MEDS ORDERED: Hydrochlorothiazide 25 MG Tab PO SCH (09:00)
[2017-05-26] MEDS: Chlorthalidone 25 MG Tab PO SCH (09:05)
[2017-05-26] MEDS: Sertraline 25 MG Tab PO SCH (09:09)
[2017-05-26] MEDS: Magnesium Sulfate/Water 2 GM in Premix Bag 1 BAG IV SCH ×2 (10:25→17:14)
[2017-05-26] MEDS: Metoprolol Succinate 50 MG Tab.ER PO SCH ×3 (10:25→20:00)
--- NOTE | 2017-05-26 14:56 | PCM.PN ---
- General Info Date of Service: 05/26/17 Subjective Update: Ms. Mullins has felt improved today, more energy and appetite has been better. She did have significant temperature elevation during the night but none since then. Blood cultures are growing gram-negative rods, urine culture pending. - Review of Systems General: Reports: Fever, Weakness, Chills Pulmonary: Reports: No Symptoms Cardiovascular: Reports: No Symptoms Gastrointestinal: Reports: Abdominal Pain. Denies: Decreased Appetite, Difficulty Swallowing, Nausea, Vomiting Genitourinary: Reports: Dysuria, Frequency, Urgency - Patient Data Vitals - Most Recent: Last Vital Signs Temp 98.9 F 05/26/17 12:14 Pulse 72 05/26/17 13:43 Resp 20 05/26/17 12:14 BP 160/65 H 05/26/17 13:43 Pulse Ox 99 05/26/17 12:14 Weight - Most Recent: 157 lb 11.2 oz I&O - Last 24 Hours: Intake & Output 05/25/17 05/26/17 05/26/17 22:59 06:59 14:59 Intake Total 50 1495 50 Output Total 900 800 Balance 50 595 -750 Lab Results Last 24 Hours: Laboratory Results - last 24 hr 05/26/17 05/26/17 Range/Units 05:28 05:28 WBC 18.9 H (4.5-11.0) K/uL RBC 3.59 (3.30-5.50) M/uL Hgb 10.8 L (12.0-15.0) g/dL Hct 32.2 L (36.0-48.0) % MCV 90 (80-98) fL MCH 30 (27-31) pg MCHC 34 (32-36) % Plt Count 250 (150-400) K/uL Neut % (Auto) 85 H (36-66) % Lymph % (Auto) 5 L (24-44) % [place] % (Auto) 9 H (2-6) % Eos % (Auto) 0 L (2-4) % Baso % (Auto) 0 (0-1) % Sodium 140 (140-148) mmol/L Potassium 3.7 (3.6-5.2) mmol/L Chloride 106 (100-108) mmol/L Carbon Dioxide 23 (21-32) mmol/L Anion Gap 11.4 (5.0-14.0) mmol/L BUN 18 (7-18) mg/dL Creatinine 1.0 (0.6-1.0) mg/dL Est Cr Clr Drug Dosing 37.73 mL/min Estimated GFR (MDRD) 53 L (>60) Glucose 119 H (74-106) mg/dL Calcium 8.4 L (8.5-10.1) mg/dL Magnesium 1.6 L (1.8-2.4) mg/dL Med Orders - Current: Current Medications Acetaminophen (Tylenol) 650 mg PO Q4H PRN PRN Reason: Pain (Mild 1-3)/fever Last Admin: 05/26/17 13:44 Dose: 650 mg Chlorthalidone (Chlorthalidone) 25 mg PO DAILY [facility] Last Admin: 05/26/17 09:05 Dose: 25 mg Enoxaparin Sodium (Lovenox) 40 mg SUBCUT Q24H [facility] Ceftriaxone Sodium 1 gm/ (Sodium Chloride) 50 mls @ 100 mls/hr IV Q24H [facility] Last Admin: 05/25/17 22:16 Dose: 100 mls/hr Magnesium Sulfate 2 gm/ Premix 50 mls @ 25 mls/hr IV Q6H [facility] Stop: 05/26/17 17:59 Last Admin: 05/26/17 10:25 Dose: 25 mls/hr Magnesium Hydroxide (Milk Of Magnesia) 30 ml PO Q12H PRN PRN Reason: Constipation Methimazole (Methimazole) 2.5 mg PO Q48H [facility] Metoprolol Succinate (Toprol Xl) 50 mg PO TID [facility] Last Admin: 05/26/17 13:43 Dose: 50 mg Ondansetron HCl (Zofran) 4 mg IV Q4H PRN PRN Reason: Nausea/Vomiting Last Admin: 05/26/17 04:03 Dose: 4 mg Oxycodone HCl (Oxycodone) 5 mg PO Q4H PRN PRN Reason: Pain (moderate 4-6) Polyethylene Glycol (Miralax) 17 gm PO DAILY PRN PRN Reason: Constipation Senna/Docusate Sodium (Senna Plus) 1 tab PO BID PRN PRN Reason: Constipation Sertraline HCl (Zoloft) 25 mg PO DAILY [facility] Last Admin: 05/26/17 09:09 Dose: 25 mg Sodium Chloride (Saline Flush) 10 ml FLUSH ASDIRECTED PRN PRN Reason: Keep Vein Open Valsartan (Diovan) 320 mg PO DAILY [facility] Last Admin: 05/26/17 09:06 Dose: 320 mg Discontinued Medications Enoxaparin Sodium (Lovenox) 40 mg SUBCUT DAILY [facility] Last Admin: 05/25/17 22:36 Dose: 40 mg Hydrochlorothiazide (Hydrochlorothiazide) 25 mg PO DAILY [facility] Last Admin: 05/26/17 09:08 Dose: 25 mg Sodium Chloride (Normal Saline) 1,000 mls @ 999 mls/hr IV ASDIRECTED [facility] Last Admin: 05/25/17 17:09 Dose: 999 mls/hr Potassium Chloride 20 meq/ (Premix) 100 mls @ 50 mls/hr IV ONETIME ONE Stop: 05/25/17 19:17 Last Admin: 05/25/17 17:35 Dose: 50 mls/hr Sodium Chloride (Normal Saline) 100 mls @ 3 mls/sec IV ASDIRECTED [facility] Last Admin: 05/25/17 18:32 Dose: 3 mls/sec Sodium Chloride (Normal Saline) 1,000 mls @ 999 mls/hr IV ASDIRECTED [facility] Last Admin: 05/25/17 19:51 Dose: 999 mls/hr Potassium Chloride 40 meq/ (Premix) 100 mls @ 25 mls/hr IV ONETIME ONE Stop: 05/26/17 01:28 Last Admin: 05/25/17 22:59 Dose: Not Given Sodium Chloride (Normal Saline) 1,000 mls @ 125 mls/hr IV ASDIRECTED [facility] Last Admin: 05/26/17 04:09 Dose: 125 mls/hr Potassium Chloride 20 meq/ (Lidocaine HCl 2 ml/ Premix) 102 mls @ 51 mls/hr IV Q1H [facility] Stop: 05/26/17 00:59 Last Admin: 05/26/17 01:10 Dose: 51 mls/hr Potassium Chloride (Kcl 20 Meq In Water 100 Ml) Confirm Administered Dose 200 mls @ as directed .ROUTE .STK-MED ONE Stop: 05/25/17 22:57 Last Admin: 05/25/17 23:53 Dose: Not Given Iopamidol (Isovue-370 (76%)) 100 ml IV . DIRECTED [facility] Last Admin: 05/25/17 18:33 Dose: 100 ml Lidocaine HCl (Xylocaine-Mpf 1%) Confirm Administered Dose 5 ml .ROUTE .STK-MED ONE Stop: 05/25/17 22:58 Last Admin: 05/25/17 23:05 Dose: 5 ml Methimazole (Methimazole) 2.5 mg PO DAILY [facility] Last Admin: 05/26/17 09:08 Dose: 2.5 mg Potassium Chloride (Klor-Con M20) 20 meq PO ONETIME ONE Stop: 05/25/17 17:19 Last Admin: 05/25/17 17:35 Dose: 20 meq - Exam Quality Assessment: DVT Prophylaxis General: Alert, Oriented, Cooperative, Mild Distress Lungs: Clear to Auscultation, Normal Respiratory Effort Cardiovascular: Regular Rate, Regular Rhythm, No Murmurs GI/Abdominal Exam: Soft, No Organomegaly, Tender. No: Distended, Guarding, Rigid, Rebound Extremities: Non-Tender, No Pedal Edema Skin: Warm, Dry, Intact - Problem List Review Problem List Initiated/Reviewed/Updated: Yes - My Orders Last 24 Hours: My Active Orders 05/25/17 20:27 Resuscitation Status Routine 05/25/17 21:29 Patient Status [ADT] Routine Ambulate [RC] QID Height and Weight [RC] 0500 Intake and Output [RC] QSHIFT Notify Provider Vital Signs [RC] ASDIRECTED Oxygen Therapy [RC] PRN Peripheral IV Care [RC] . DIRECTED Up With Assistance [RC] ASDIRECTED Up to Chair [RC] QID VTE/DVT Education [RC] Per Unit Routine Vital Signs [RC] Q4H PT Evaluation and Treatment [CONS] Routine Acetaminophen [Tylenol] 650 mg PO Q4H PRN Docusate Sodium/Sennosides [Senna Plus] 1 tab PO BID PRN Magnesium Hydroxide [Milk of Magnesia] 30 ml PO Q12H PRN Ondansetron [Zofran] 4 mg IV Q4H PRN Polyethylene Glycol 3350 [MiraLAX] 17 gm PO DAILY PRN Sodium Chloride 0.9% [Saline Flush] 10 ml FLUSH ASDIRECTED PRN oxyCODONE 5 mg PO Q4H PRN Peripheral IV Insertion Adult [OM.PC] Routine 05/25/17 Dinner Regular Diet [DIET] 05/26/17 10:00 Magnesium Sulfate/Water [Magnesium Sulfate 2 GM in Water 50 ML] 2 gm Premix Bag 1 bag IV Q6H 05/26/17 14:15 Convert IV to Saline Lock [OM.PC] Routine 05/26/17 20:00 Enoxaparin [Lovenox] 40 mg SUBCUT Q24H 05/28/17 09:00 Methimazole 2.5 mg PO Q48H - Plan Plan:: ASSESSMENT AND PLAN SEVERE CYSTITIS-blood cultures growing gram-negative rods, final ID and sensitivities pending. Temperature elevation during the night but none since then. Overall feeling modestly improved with increased energy and improvement in appetite -Blood and urine cultures pending -Saline lock IV -IV Rocephin 1 g every 24 hours -Pain and anti-medic therapy as needed HYPOKALEMIA-potassium level improved following replacement -Repeat potassium level in a.m. HYPOMAGNESEMIA -IV magnesium replacement -Repeat magnesium level in a.m. HYPERTENSION -Continue outpatient medical regimen MAINTENANCE ISSUES -DVT prophylaxis; Lovenox 40 mg subcutaneous daily -GI prophylaxis; not indicated -De Luna catheter; not indicated -Nutrition; regular diet -Nicotine dependence; not required CODE STATUS-FULL CODE ADMISSION STATUS-patient will be admitted to inpatient status, expect at least a 2 night hospital stay for evaluation and management of problems as outlined above. At the time of this admission I do not reasonably expected evaluation and management of this problem will require more than a 96 hour hospital stay. DISPOSITION-anticipate discharge to home after the hospital stay. PRIMARY CARE PROVIDER-Som Mcneil
[2017-05-26] MEDS: Enoxaparin 40 MG/0.4 ML Syringe SUBCUT SCH (19:24)
[2017-05-26] MEDS: cefTRIAXone 1 GM in Sodium Chloride 0.9% 50 ML IV SCH (19:25)
[2017-05-27] MEDS: Acetaminophen 325 MG Tab PO PRN (02:34)
[2017-05-27] MEDS ORDERED: Potassium Chloride 20 MEQ in Premix Bag 2 BAG IV ONE (08:35)
[2017-05-27] MEDS ORDERED: Potassium Chloride 20 MEQ Tab.ER PO ONE ×2 (09:00→17:00)
[2017-05-27] MEDS: Metoprolol Succinate 50 MG Tab.ER PO SCH ×3 (09:48→20:29)
[2017-05-27] MEDS: Sertraline 25 MG Tab PO SCH (09:49)
[2017-05-27] MEDS: Chlorthalidone 25 MG Tab PO SCH (09:50)
[2017-05-27] MEDS: Potassium Chloride 20 MEQ, Lidocaine 1% 2 ML in Sodium Chloride 0.9% 100 ML IV SCH ×2 (09:50→11:49)
--- NOTE | 2017-05-27 12:10 | PCM.PN ---
- General Info Date of Service: 05/27/17 Subjective Update: Ms. Mullins has done well since yesterday, only mild temperature elevations with stable vital signs. Energy level seems to be slowly improving as does her appetite. Gram-negative rods growing from both urine as well as sputum, final ID and sensitivities pending. - Review of Systems General: Reports: Fever, Weakness, Chills Pulmonary: Reports: No Symptoms Cardiovascular: Reports: No Symptoms Gastrointestinal: Reports: No Symptoms Genitourinary: Reports: No Symptoms - Patient Data Vitals - Most Recent: Last Vital Signs Temp 98.4 F 05/27/17 11:52 Pulse 72 05/27/17 11:52 Resp 16 05/27/17 11:52 BP 163/82 H 05/27/17 11:52 Pulse Ox 95 05/27/17 11:52 Weight - Most Recent: 157 lb 14.4 oz I&O - Last 24 Hours: Intake & Output 05/26/17 05/27/17 05/27/17 22:59 06:59 14:59 Intake Total 170 300 704 Output Total 750 800 400 Balance -580 -500 304 Lab Results Last 24 Hours: Laboratory Results - last 24 hr 05/27/17 05/27/17 05/27/17 Range/Units 08:11 08:11 08:11 WBC 12.9 H (4.5-11.0) K/uL RBC 3.84 (3.30-5.50) M/uL Hgb 11.5 L (12.0-15.0) g/dL Hct 34.3 L (36.0-48.0) % MCV 89 (80-98) fL MCH 30 (27-31) pg MCHC 34 (32-36) % Plt Count 322 (150-400) K/uL Add Manual Diff Yes Neutrophils % (Manual) 87 H (36-66) % Lymphocytes % (Manual) 7 L (24-44) % Monocytes % (Manual) 3 (2-6) % Sodium 140 (140-148) mmol/L Potassium 2.9 L* (3.6-5.2) mmol/L Chloride 104 (100-108) mmol/L Carbon Dioxide 26 (21-32) mmol/L Anion Gap 12.9 (5.0-14.0) mmol/L BUN 13 (7-18) mg/dL Creatinine 1.2 H (0.6-1.0) mg/dL Est Cr Clr Drug Dosing 31.45 mL/min Estimated GFR (MDRD) 43 L (>60) Glucose 171 H (74-106) mg/dL Calcium 9.1 (8.5-10.1) mg/dL Magnesium 2.0 (1.8-2.4) mg/dL Tray Results Last 24 Hours: Microbiology 05/25/17 21:01 Urine Culture - Preliminary Urine, Clean Catch Med Orders - Current: Current Medications Acetaminophen (Tylenol) 650 mg PO Q4H PRN PRN Reason: Pain (Mild 1-3)/fever Last Admin: 05/27/17 02:34 Dose: 650 mg Chlorthalidone (Chlorthalidone) 25 mg PO DAILY COUNT INCLUDES [facility] Last Admin: 05/27/17 09:50 Dose: 25 mg Enoxaparin Sodium (Lovenox) 40 mg SUBCUT Q24H COUNT INCLUDES THE [facility] Last Admin: 05/26/17 19:24 Dose: 40 mg Ceftriaxone Sodium 1 gm/ (Sodium Chloride) 50 mls @ 100 mls/hr IV Q24H COUNT INCLUDES THE [facility] Last Admin: 05/26/17 19:25 Dose: 100 mls/hr Potassium Chloride 20 meq/Lidocaine HCl 2 ml/ Sodium Chloride 112 mls @ 56 mls/ hr IV Q2H COUNT INCLUDES THE [facility] Stop: 05/27/17 13:29 Last Admin: 05/27/17 11:49 Dose: 56 mls/hr Magnesium Hydroxide (Milk Of Magnesia) 30 ml PO Q12H PRN PRN Reason: Constipation Methimazole (Methimazole) 2.5 mg PO Q48H COUNT INCLUDES THE [facility] Metoprolol Succinate (Toprol Xl) 50 mg PO TID COUNT INCLUDES THE [facility] Last Admin: 05/27/17 09:48 Dose: 50 mg Ondansetron HCl (Zofran) 4 mg IV Q4H PRN PRN Reason: Nausea/Vomiting Last Admin: 05/26/17 04:03 Dose: 4 mg Oxycodone HCl (Oxycodone) 5 mg PO Q4H PRN PRN Reason: Pain (moderate 4-6) Polyethylene Glycol (Miralax) 17 gm PO DAILY PRN PRN Reason: Constipation Senna/Docusate Sodium (Senna Plus) 1 tab PO BID PRN PRN Reason: Constipation Sertraline HCl (Zoloft) 25 mg PO DAILY COUNT INCLUDES [facility] Last Admin: 05/27/17 09:49 Dose: 25 mg Sodium Chloride (Saline Flush) 10 ml FLUSH ASDIRECTED PRN PRN Reason: Keep Vein Open Valsartan (Diovan) 320 mg PO DAILY COUNT INCLUDES [facility] Last Admin: 05/27/17 09:49 Dose: 320 mg Discontinued Medications Enoxaparin Sodium (Lovenox) 40 mg SUBCUT DAILY COUNT INCLUDES [facility] Last Admin: 05/25/17 22:36 Dose: 40 mg Hydrochlorothiazide (Hydrochlorothiazide) 25 mg PO DAILY COUNT INCLUDES [facility] Last Admin: 05/26/17 09:08 Dose: 25 mg Sodium Chloride (Normal Saline) 1,000 mls @ 999 mls/hr IV ASDIRECTED COUNT INCLUDES THE [facility] Last Admin: 05/25/17 17:09 Dose: 999 mls/hr Potassium Chloride 20 meq/ (Premix) 100 mls @ 50 mls/hr IV ONETIME ONE Stop: 05/25/17 19:17 Last Admin: 05/25/17 17:35 Dose: 50 mls/hr Sodium Chloride (Normal Saline) 100 mls @ 3 mls/sec IV ASDIRECTED COUNT INCLUDES THE [facility] Last Admin: 05/25/17 18:32 Dose: 3 mls/sec Sodium Chloride (Normal Saline) 1,000 mls @ 999 mls/hr IV ASDIRECTED COUNT INCLUDES THE [facility] Last Admin: 05/25/17 19:51 Dose: 999 mls/hr Potassium Chloride 40 meq/ (Premix) 100 mls @ 25 mls/hr IV ONETIME ONE Stop: 05/26/17 01:28 Last Admin: 05/25/17 22:59 Dose: Not Given Sodium Chloride (Normal Saline) 1,000 mls @ 125 mls/hr IV ASDIRECTED COUNT INCLUDES THE [facility] Last Admin: 05/26/17 04:09 Dose: 125 mls/hr Potassium Chloride 20 meq/ (Lidocaine HCl 2 ml/ Premix) 102 mls @ 51 mls/hr IV Q1H COUNT INCLUDES THE [facility] Stop: 05/26/17 00:59 Last Admin: 05/26/17 01:10 Dose: 51 mls/hr Potassium Chloride (Kcl 20 Meq In Water 100 Ml) Confirm Administered Dose 200 mls @ as directed .ROUTE .STK-MED ONE Stop: 05/25/17 22:57 Last Admin: 05/25/17 23:53 Dose: Not Given Magnesium Sulfate 2 gm/ Premix 50 mls @ 25 mls/hr IV Q6H COUNT INCLUDES THE [facility] Stop: 05/26/17 17:59 Last Admin: 05/26/17 17:14 Dose: 25 mls/hr Iopamidol (Isovue-370 (76%)) 100 ml IV . DIRECTED COUNT INCLUDES THE [facility] Last Admin: 05/25/17 18:33 Dose: 100 ml Lidocaine HCl (Xylocaine-Mpf 1%) Confirm Administered Dose 5 ml .ROUTE .STK-MED ONE Stop: 05/25/17 22:58 Last Admin: 05/25/17 23:05 Dose: 5 ml Methimazole (Methimazole) 2.5 mg PO DAILY COUNT INCLUDES THE [facility] Last Admin: 05/26/17 09:08 Dose: 2.5 mg Potassium Chloride (Klor-Con M20) 20 meq PO ONETIME ONE Stop: 05/25/17 17:19 Last Admin: 05/25/17 17:35 Dose: 20 meq Potassium Chloride (Klor-Con M20) 40 meq PO ONETIME ONE Stop: 05/27/17 09:01 Last Admin: 05/27/17 09:50 Dose: 40 meq - Exam Quality Assessment: DVT Prophylaxis General: Alert, Oriented, Cooperative, Mild Distress Lungs: Clear to Auscultation, Normal Respiratory Effort Cardiovascular: Regular Rate, Regular Rhythm, No Murmurs GI/Abdominal Exam: Soft, Non-Tender, No Organomegaly, No Distention Extremities: Non-Tender, No Pedal Edema Skin: Warm, Dry, Intact - Problem List Review Problem List Initiated/Reviewed/Updated: Yes - My Orders Last 24 Hours: My Active Orders 05/26/17 14:15 Convert IV to Saline Lock [OM.PC] Routine 05/26/17 20:00 Enoxaparin [Lovenox] 40 mg SUBCUT Q24H 05/27/17 09:30 Potassium Chloride 20 meq Lidocaine 1% [Xylocaine 1%] 2 ml Sodium Chloride 0.9 % [Normal Saline] 100 ml IV Q2H 05/27/17 17:00 Potassium Chloride [Klor-Con M20] 40 meq PO ONETIME ONE 05/28/17 05:00 BASIC METABOLIC PANEL,BMP [CHEM] Timed CBC WITH AUTO DIFF [HEME] Timed 05/28/17 09:00 Methimazole 2.5 mg PO Q48H - Plan Plan:: ASSESSMENT AND PLAN SEVERE CYSTITIS-blood cultures and urine culture growing gram-negative rods, final ID and sensitivities pending. Mild temperature elevation since yesterday, white blood cell count has improved but remains modestly elevated -Blood and urine cultures pending -Saline lock IV -IV Rocephin 1 g every 24 hours -Pain and anti-medic therapy as needed HYPOKALEMIA-potassium level low again today -IV and oral potassium replacement -Repeat potassium level in a.m. HYPOMAGNESEMIA resolved following replacement- HYPERTENSION -Continue outpatient medical regimen MAINTENANCE ISSUES -DVT prophylaxis; Lovenox 40 mg subcutaneous daily -GI prophylaxis; not indicated -[place] catheter; not indicated -Nutrition; regular diet -Nicotine dependence; not required CODE STATUS-FULL CODE ADMISSION STATUS-patient will be admitted to inpatient status, expect at least a 2 night hospital stay for evaluation and management of problems as outlined above. At the time of this admission I do not reasonably expected evaluation and management of this problem will require more than a 96 hour hospital stay. DISPOSITION-anticipate discharge to home after the hospital stay. PRIMARY CARE PROVIDER-Som Mcneil
[2017-05-27] MEDS: cefTRIAXone 1 GM in Sodium Chloride 0.9% 50 ML IV SCH (20:30)
[2017-05-27] MEDS: Enoxaparin 40 MG/0.4 ML Syringe SUBCUT SCH (20:30)
[2017-05-27] MEDS: oxyCODONE 5 MG Tab PO PRN (22:39)
[2017-05-28] MEDS: oxyCODONE 5 MG Tab PO PRN (03:39)
[2017-05-28] MEDS: Chlorthalidone 25 MG Tab PO SCH (08:04)
[2017-05-28] MEDS: Metoprolol Succinate 50 MG Tab.ER PO SCH ×2 (08:05→13:57)
[2017-05-28] MEDS: Sertraline 25 MG Tab PO SCH (08:05)
--- NOTE | 2017-05-28 08:37 | CR ---
Chest 2V HISTORY: cough COMPARISON: 01/16/2013 FINDINGS: Lungs appear clear and normally aerated. Cardiomediastinal silhouette is within normal limits. No vas cular redistribution or pleural fluid can be seen. Bony structures and soft tissues are unremarkable. IMPRESSION: No acute chest abnormality or significant interval change is identified.
[2017-05-28] MEDS ORDERED: Methimazole 5 MG Tab PO SCH (09:00)
--- NOTE | 2017-05-28 11:10 | CR ---
Lumbar Spine 2 or 3V HISTORY: right lower back pain with radiculopathy FINDINGS: Vertebral body alignment is satisfactory. No compression fracture is identified. There is p osterior leisa and pedicle screw fusion L3 through S1 bilaterally. Pedicle screws are present bilateral ly at L3, L5, and S1. Intervertebral body bone plug fusion is also present at L3-4, L4-5, and L5-S1. Spinous processes, posterior elements, and pedicles appear intact and in satisfactory alignment. Ther e is slight rotoscoliosis of the lumbar spine convex to the left. Perivertebral soft tissues are unre markable. IMPRESSION: Anterior and posterior fusion changes lower lumbar spine. Slight rotoscoliosis convex to the left. No acute lumbar spine abnormality is identified.
--- NOTE | 2017-05-28 11:12 | CR ---
Knee 1V or 2V Rt HISTORY: pain FINDINGS: No acute fracture or dislocation is identified. There is narrowing of the medial compartment with sma ll medial osteophytes. Lateral compartment and patellofemoral joint are unremarkable. No joint effusi on is seen. Bony structures appear somewhat osteopenic. IMPRESSION: Degenerative changes greatest at the medial compartment right knee. Possible osteopenia. No acute rig ht knee abnormality is identified.
[2017-05-28 11:16] VITALS: BP 125/61
--- NOTE | 2017-05-28 14:54 | PCM.DCSUM1 ---
Discharge Summary - Hospital Course Brief History: 81-year-old female with history of essential hypertension who presented with fever, nausea and weakness and was admitted for management of acute cystitis. - Discharge Data Discharge Date: 05/28/17 Discharge Disposition: Home, [facility] Condition: Good - Discharge Diagnosis/Problem(s) (1) Acute cystitis with positive culture SNOMED Code(s): 009257606 ICD Code: N30.00 - ACUTE CYSTITIS WITHOUT HEMATURIA Status: Acute (2) Hypokalemia SNOMED Code(s): 62040858 ICD Code: E87.6 - HYPOKALEMIA Status: Acute (3) HTN (hypertension) SNOMED Code(s): 43648846 ICD Code: I10 - ESSENTIAL (PRIMARY) HYPERTENSION Status: Chronic Qualifiers: Hypertension type: essential hypertension Qualified Code(s): I10 - Essential (primary) hypertension - Patient Summary/Data Consults: Consultations 05/25/17 21:29 PT Evaluation and Treatment [CONS] Routine Please Evaluate and Treat. PT Reason for Consult: Strengthening This query below is only for informational purposes and is not editable. Hospital Course: Annette presented to the emergency room with fevers, chills and weakness. She had extensive workup in the emergency room revealed evidence for acute cystitis. Cultures were obtained and empiric antibiotics were initiated. She was admitted to the hospital given her significant weakness. Over the next couple of days she had improvements in her fever curve and slow but steady improvements in her strength. She did have a blood culture that was positive for gram-negative rods and later urine culture and this blood culture revealed Escherichia coli. Vital signs have been stable throughout the hospital stay and strength has been slowly improving. Once her cultures were final the plan was to transition to oral antibiotics. We discussed home with home care versus halfway placement and she felt that her strength had improved enough she would be able to go home. On the morning of discharge she did mention some lower back as well as right hip and knee pain. X-rays of the lumbar spine and right knee were obtained with no acute abnormalities. These pains have been controlled with just [id number] type analgesic medicines. She may have a mild lower back strain after recent heavy lifting. She is safe for discharge at this time and will be going home with several additional days of anabiotic therapy given her severe cystitis. There was no evidence for sepsis at the time of presentation or during the hospital stay. She will be going home with home health care to provide physical therapy and nursing services. during the hospital stay she also had intermittent hypokalemia which responded well to supplementation. - Patient Instructions Diet: Regular Diet as Tolerated Activity: As Tolerated Showering/Bathing: May Shower Notify Provider of: Fever, Increased Pain, Nausea and/or Vomiting Other/Special Instructions: 1. You were in the hospital for management of acute cystitis (urinary tract infection) caused by Escherichia coli. Because of the severity of the infection I recommend 7 additional doses of antibiotics. You should take cephalexin (Keflex) 500 mg twice daily with food. Your next dose is due tonight. 2. Continue your other home medications as previously prescribed. 3. I have placed a referral to home health care. They will provide nursing and physical therapy services to help ease your transition home from the hospital. 4. Please seek medical attention if you develop fever greater than 101, have severe abdominal pain, persistent vomiting or severe diarrhea. - Discharge Plan Prescriptions/Med Rec: Cephalexin 500 mg PO BID #7 capsule Home Medications: Home Meds Tylenol 500 mg PO BEDTIME 01/06/13 [History] Chlorthalidone 1 tab PO DAILY 05/19/17 [History] Methimazole 2.5 mg PO Q48H 05/19/17 [History] Metoprolol Succinate 50 mg PO TID 05/25/17 [History] Sertraline [Zoloft] 1 tab PO DAILY 05/25/17 [History] Valsartan 1 tab PO DAILY 05/25/17 [History] Cephalexin 500 mg PO BID #7 capsule 05/28/17 [Rx] Patient Handouts: Urinary Tract Infection, Adult, Cephalexin tablets or capsules Referrals: PCP,None [Primary Care Provider] - (follow-up in 3-5 days if your symptoms do not continue to get better or if they get worse) - Discharge Summary/Plan Comment DC Time >30 min.: No (25) - Patient Data Vitals - Most Recent: Last Vital Signs Temp 36.9 C 05/28/17 11:11 Pulse 71 05/28/17 13:57 Resp 16 05/28/17 11:11 BP 125/61 05/28/17 13:57 Pulse Ox 97 05/28/17 11:11 Weight - Most Recent: 71.033 kg I&O - Last 24 hours: Intake & Output 05/27/17 05/28/17 05/28/17 22:59 06:59 14:59 Intake Total 1050 280 Output Total 1050 Balance 0 280 Lab Results - Last 24 hrs: Laboratory Results - last 24 hr 05/28/17 05/28/17 Range/Units 05:45 05:45 WBC 8.9 (4.5-11.0) K/uL RBC 3.43 (3.30-5.50) M/uL Hgb 10.3 L (12.0-15.0) g/dL Hct 30.9 L (36.0-48.0) % MCV 90 (80-98) fL MCH 30 (27-31) pg MCHC 33 (32-36) % Plt Count 321 (150-400) K/uL Neut % (Auto) 67 H (36-66) % Lymph % (Auto) 20 L (24-44) % Morrison % (Auto) 11 H (2-6) % Eos % (Auto) 2 (2-4) % Baso % (Auto) 1 (0-1) % Sodium 140 (140-148) mmol/L Potassium 4.0 (3.6-5.2) mmol/L Chloride 106 (100-108) mmol/L Carbon Dioxide 26 (21-32) mmol/L Anion Gap 8.4 (5.0-14.0) mmol/L BUN 12 (7-18) mg/dL Creatinine 1.1 H (0.6-1.0) mg/dL Est Cr Clr Drug Dosing 34.29 mL/min Estimated GFR (MDRD) 48 L (>60) Glucose 109 H (74-106) mg/dL Calcium 8.8 (8.5-10.1) mg/dL KT Results - Last 24 hrs: Microbiology 05/25/17 21:01 Urine Culture - Final Urine, Clean Catch Escherichia Coli Med Orders - Current: Current Medications Acetaminophen (Tylenol) 650 mg PO Q4H PRN PRN Reason: Pain (Mild 1-3)/fever Last Admin: 05/27/17 02:34 Dose: 650 mg Chlorthalidone (Chlorthalidone) 25 mg PO DAILY [facility] Last Admin: 05/28/17 08:04 Dose: 25 mg Enoxaparin Sodium (Lovenox) 40 mg SUBCUT Q24H [facility] Last Admin: 05/27/17 20:30 Dose: 40 mg Ceftriaxone Sodium 1 gm/ (Sodium Chloride) 50 mls @ 100 mls/hr IV Q24H [facility] Last Admin: 05/27/17 20:30 Dose: 100 mls/hr Magnesium Hydroxide (Milk Of Magnesia) 30 ml PO Q12H PRN PRN Reason: Constipation Methimazole (Methimazole) 2.5 mg PO Q48H [facility] Last Admin: 05/28/17 08:04 Dose: 2.5 mg Metoprolol Succinate (Toprol Xl) 50 mg PO TID [facility] Last Admin: 05/28/17 13:57 Dose: 50 mg Ondansetron HCl (Zofran) 4 mg IV Q4H PRN PRN Reason: Nausea/Vomiting Last Admin: 05/26/17 04:03 Dose: 4 mg Oxycodone HCl (Oxycodone) 5 mg PO Q4H PRN PRN Reason: Pain (moderate 4-6) Last Admin: 05/28/17 03:39 Dose: 5 mg Polyethylene Glycol (Miralax) 17 gm PO DAILY PRN PRN Reason: Constipation Senna/Docusate Sodium (Senna Plus) 1 tab PO BID PRN PRN Reason: Constipation Sertraline HCl (Zoloft) 25 mg PO DAILY [facility] Last Admin: 05/28/17 08:05 Dose: 25 mg Sodium Chloride (Saline Flush) 10 ml FLUSH ASDIRECTED PRN PRN Reason: Keep Vein Open Valsartan (Diovan) 320 mg PO DAILY [facility] Last Admin: 05/28/17 08:04 Dose: 320 mg Discontinued Medications Enoxaparin Sodium (Lovenox) 40 mg SUBCUT DAILY [facility] Last Admin: 05/25/17 22:36 Dose: 40 mg Hydrochlorothiazide (Hydrochlorothiazide) 25 mg PO DAILY [facility] Last Admin: 05/26/17 09:08 Dose: 25 mg Sodium Chloride (Normal Saline) 1,000 mls @ 999 mls/hr IV ASDIRECTED [facility] Last Admin: 05/25/17 17:09 Dose: 999 mls/hr Potassium Chloride 20 meq/ (Premix) 100 mls @ 50 mls/hr IV ONETIME ONE Stop: 05/25/17 19:17 Last Admin: 05/25/17 17:35 Dose: 50 mls/hr Sodium Chloride (Normal Saline) 100 mls @ 3 mls/sec IV ASDIRECTED [facility] Last Admin: 05/25/17 18:32 Dose: 3 mls/sec Sodium Chloride (Normal Saline) 1,000 mls @ 999 mls/hr IV ASDIRECTED [facility] Last Admin: 05/25/17 19:51 Dose: 999 mls/hr Potassium Chloride 40 meq/ (Premix) 100 mls @ 25 mls/hr IV ONETIME ONE Stop: 05/26/17 01:28 Last Admin: 05/25/17 22:59 Dose: Not Given Sodium Chloride (Normal Saline) 1,000 mls @ 125 mls/hr IV ASDIRECTED [facility] Last Admin: 05/26/17 04:09 Dose: 125 mls/hr Potassium Chloride 20 meq/ (Lidocaine HCl 2 ml/ Premix) 102 mls @ 51 mls/hr IV Q1H [facility] Stop: 05/26/17 00:59 Last Admin: 05/26/17 01:10 Dose: 51 mls/hr Potassium Chloride (Kcl 20 Meq In Water 100 Ml) Confirm Administered Dose 200 mls @ as directed .ROUTE .STK-MED ONE Stop: 05/25/17 22:57 Last Admin: 05/25/17 23:53 Dose: Not Given Magnesium Sulfate 2 gm/ Premix 50 mls @ 25 mls/hr IV Q6H [facility] Stop: 05/26/17 17:59 Last Admin: 05/26/17 17:14 Dose: 25 mls/hr Potassium Chloride 20 meq/Lidocaine HCl 2 ml/ Sodium Chloride 112 mls @ 56 mls/ hr IV Q2H [facility] Stop: 05/27/17 13:29 Last Admin: 05/27/17 11:49 Dose: 56 mls/hr Iopamidol (Isovue-370 (76%)) 100 ml IV . DIRECTED [facility] Last Admin: 05/25/17 18:33 Dose: 100 ml Lidocaine HCl (Xylocaine-Mpf 1%) Confirm Administered Dose 5 ml .ROUTE .STK-MED ONE Stop: 05/25/17 22:58 Last Admin: 05/25/17 23:05 Dose: 5 ml Methimazole (Methimazole) 2.5 mg PO DAILY [facility] Last Admin: 05/26/17 09:08 Dose: 2.5 mg Potassium Chloride (Klor-Con M20) 20 meq PO ONETIME ONE Stop: 05/25/17 17:19 Last Admin: 05/25/17 17:35 Dose: 20 meq Potassium Chloride (Klor-Con M20) 40 meq PO ONETIME ONE Stop: 05/27/17 09:01 Last Admin: 05/27/17 09:50 Dose: 40 meq Potassium Chloride (Klor-Con M20) 40 meq PO ONETIME ONE Stop: 05/27/17 17:01 Last Admin: 05/27/17 17:40 Dose: 40 meq - Exam Quality Assessment: Denies: Supplemental Oxygen General: Reports: Alert, Oriented, Cooperative, No Acute Distress Neck: Reports: Supple Lungs: Reports: Clear to Auscultation, Normal Respiratory Effort Cardiovascular: Reports: Regular Rate, Regular Rhythm GI/Abdominal Exam: Soft, No Distention Back Exam: Reports: Muscle Spasm (right lumbar spine), Other (mild ttp over right SI joint) Skin: Reports: Warm, Dry Psy/Mental Status: Reports: Alert, Normal Affect *Q Meaningful Use (DIS) - VTE *Q VTE Criteria *Q: - Stroke *Q Stroke Criteria *Q: - AMI *Q AMI Criteria *Q:
== END 2017-05-28 15:25 | disposition home health service (06) | DRG 690 ==
LOC: JP.ED 15:13 → JP.MS 20:25
PROVIDERS: ADMIT Hospitalist; ATTEND Hospitalist
DX: N30.00 Acute cystitis without hematuria (principal); B96.20 Unspecified Escherichia coli [E. coli] as the cause of diseases classified elsewhere; I10 Essential (primary) hypertension; E86.0 Dehydration; E87.6 Hypokalemia; E03.9 Hypothyroidism, unspecified; Z91.81 History of falling; R53.1 Weakness; R50.9 Fever, unspecified; R11.0 Nausea; E83.42 Hypomagnesemia; M25.561 Pain in right knee; M54.5 Low back pain; G89.29 Other chronic pain; Z98.1 Arthrodesis status; Z96.659 Presence of unspecified artificial knee joint; Z88.5 Allergy status to narcotic agent; Z88.0 Allergy status to penicillin
CPT/HCPCS: 36415; 71046 ×2; 71275; 74177; 80053; 81001; 83605; 84443; 84484; 85025; 85379; 86140; 87040 ×2; 87077; 87186; 87804 ×2; 93005; 96361; 96374; 99285; A9270; J3480; J7030; J7040 ×2; Q9967; 72100; 72100-26; 73560-26-RT; 73560-RT; 80048; 83735; 87086; 87088; 97110-GP; 97161-GP; J0696; J1650; J2405; J3475; J7050

== ENCOUNTER 2017-09-05 18:30 | Emergency (ER) | payer MEDICARE, OTHER ==
[2017-09-05 19:59] VITALS: BP 172/72
[2017-09-05] MEDS ORDERED: cefTRIAXone 1 GM in Sodium Chloride 0.9% 50 ML IV ONE (20:38)
--- NOTE | 2017-09-05 20:39 | EDM.PDOC ---
ED HPI GENERAL MEDICAL PROBLEM - General Chief Complaint: Genitourinary Problem Stated Complaint: UTI? Time Seen by Provider: 09/05/17 20:11 Source of Information: Reports: Patient, Family () History Limitations: Reports: No Limitations - History of Present Illness INITIAL COMMENTS - FREE TEXT/NARRATIVE: urinary tract infection; this is 82 year old female presents to ER for evaluaiton of bladde pain, pressure, urgency since last night. report this is similar to the same symptoms of bladder infection when she waited too long and had to be hospitalized for sepsis. reports fever of 101 last night. last hospitalization 05/25/2017 to 05/28/2017. dx acute cysitits, discharge medication keflex 500mg bid x 7 days Onset: Gradual Onset Date: 09/04/17 Duration: Day(s): Location: Reports: Abdomen Quality: Reports: Same as Previous Episode Severity: Moderate Improves with: Reports: None Worsens with: Reports: None Associated Symptoms: Reports: Fever/Chills - Related Data Allergies Allergy/AdvReac Type Severity Reaction Status Date / Time Penicillins Allergy Unknown Unknown Verified 09/05/17 20:03 hydromorphone HCl AdvReac Unknown unknown Verified 09/05/17 20:03 [From Dilaudid] Home Meds: Home Meds Tylenol 500 mg PO BEDTIME PRN 01/06/13 [History] Chlorthalidone 1 tab PO DAILY 05/19/17 [History] Methimazole 5 mg PO DAILY 05/19/17 [History] Metoprolol Succinate 50 mg PO BID 05/25/17 [History] Sertraline [Zoloft] 1 tab PO DAILY 05/25/17 [History] Valsartan 1 tab PO DAILY 05/25/17 [History] Past Medical History HEENT History: Reports: Cataract Cardiovascular History: Reports: Hypertension Gastrointestinal History: Reports: Chronic Constipation [employer] History: Reports: Other (See Below) Other OB/BYN History: hysterectomy Musculoskeletal History: Reports: Back Pain, Chronic Neurological History: Reports: Vertigo Endocrine/Metabolic History: Reports: Hypothyroidism - Infectious Disease History Infectious Disease History: Reports: Chicken Pox, Mumps - Past Surgical History HEENT Surgical History: Reports: Tonsillectomy Cardiovascular Surgical History: Reports: None GI Surgical History: Reports: Appendectomy, Other (See Below) Other GI Surgeries/Procedures: rectoseal Female Surgical History: Reports: Hysterectomy Endocrine Surgical History: Reports: Thyroidectomy Neurological Surgical History: Reports: Spinal Fusion, Thoracic Spine Musculoskeletal Surgical History: Reports: Knee Replacement Social & Family History - Family History Family Medical History: Noncontributory - Tobacco Use Smoking Status *Q: Never Smoker - Caffeine Use Caffeine Use: Reports: Coffee Other Caffeine Use: 1 cup a day - Recreational Drug Use Recreational Drug Use: No - Living Situation & Occupation Living situation: Reports: Occupation: Retired (lives with . both retired and active. 5 adult children) ED ROS GENERAL - Review of Systems Review Of Systems: See Below Constitutional: Reports: Fever, Chills HEENT: Reports: No Symptoms Respiratory: Reports: No Symptoms Cardiovascular: Reports: No Symptoms, Palpitations GI/Abdominal: Reports: Abdominal Pain (pain over bladder) : Reports: Dysuria, Frequency, Urgency Musculoskeletal: Reports: No Symptoms Skin: Reports: No Symptoms Neurological: Reports: No Symptoms Psychiatric: Reports: No Symptoms Hematologic/Lymphatic: Reports: No Symptoms Immunologic: Reports: No Symptoms ED EXAM, GENERAL - Physical Exam Exam: See Below Exam Limited By: No Limitations General Appearance: Alert, WD/WN, No Apparent Distress Ears: Normal External Exam Head: Atraumatic, Normocephalic Neck: Normal Inspection, Supple, Non-Tender, Full Range of Motion Respiratory/Chest: No Respiratory Distress, Lungs Clear, Normal Breath Sounds Cardiovascular: Normal Peripheral Pulses, Regular Rate, Rhythm, No Murmur GI/Abdominal: Normal Bowel Sounds, Soft, Non-Tender, No Distention, No Abnormal Bruit (Female) Exam: Deferred Rectal (Female) Exam: Deferred Back Exam: Normal Inspection, Full Range of Motion Extremities: Normal Inspection, Normal Range of Motion Neurological: Alert, Oriented, CN II-XII Intact, Normal Cognition, Normal Gait, Normal Reflexes, No Motor/Sensory Deficits Psychiatric: Normal Affect, Normal Mood Skin Exam: Warm, Dry, Intact, Normal Color, No Rash Lymphatic: No Adenopathy Course - Vital Signs Last Recorded V/S: Last Vital Signs Temp 37.9 C 09/05/17 20:06 Pulse 77 09/05/17 20:06 Resp 16 09/05/17 20:06 BP 172/72 H 09/05/17 20:06 Pulse Ox 94 L 09/05/17 20:06 - Orders/Labs/Meds Orders: Active Orders 24 hr Category Date Time Status CULTURE URINE [RM] Stat Lab 09/05/17 20:40 Received UA W/MICROSCOPIC [URIN] Stat Lab 09/05/17 19:48 Ordered Labs: Laboratory Tests 09/05/17 Range/Units 19:48 Urine Color Yellow Urine Appearance Clear Urine pH 6.0 (4.5-8.0) Ur Specific [place] 1.015 (1.008-1.030) Urine Protein Negative (NEGATIVE) mg/dL Urine Glucose (UA) Normal (NEGATIVE) mg/dL Urine Ketones Negative (NEGATIVE) mg/dL Urine Occult Blood Negative (NEGATIVE) Urine Nitrite Negative (NEGATIVE) Urine Bilirubin Negative (NEGATIVE) Urine Urobilinogen Normal (NORMAL) mg/dL Ur Leukocyte Esterase Moderate (NEGATIVE) Urine RBC 0-5 (0-5) Urine WBC 0-5 (0-5) Ur Epithelial Cells Not seen Amorphous Sediment Not seen Urine Bacteria Not seen Urine Mucus Not seen Meds: Medications Discontinued Medications Generic Name Dose Route Start Last Admin Trade Name Delroyq PRN Reason Stop Dose Admin Ceftriaxone Sodium 1 gm/ 0 gm 09/05/17 21:00 09/05/17 21:20 Lidocaine HCl 2.1 ml IM 09/05/17 21:01 2.1 inj ONETIME ONE Administration Ceftriaxone Sodium 1 gm/ 50 mls @ 100 mls/hr 09/05/17 20:38 Sodium Chloride IV 09/05/17 21:07 ONETIME ONE Departure - Departure Time of Disposition: 21:33 Disposition: Home, Self-Care 01 Condition: Good Clinical Impression: UTI, Urinary tract infectious disease - Discharge Information Instructions: Urine Culture and Sensitivity Testing Referrals: Gadiel Ortiz MD [Primary Care Provider] - Forms: ED Department Discharge Care Plan Goals: Urinary Tract Infection -urine culture pending -Rocephin 1 gram IV in ER -Keflex 500mg take 3 times a day for 10 days; start in the morning -Pyridium 200mg take 3 time a day for bladder spasm or bladder pain /pressure drink plenty of fluids, rest, take medications as directed follow up with Primary Care in 7 to 10 days for recheck return to ER if has increased pain, fever , chills, nausea, vomiting or not improved. - Problem List & Annotations (1) UTI, Urinary tract infectious disease SNOMED Code(s): 55773294 Code(s): N39.0 - URINARY TRACT INFECTION, SITE NOT SPECIFIED Status: Acute Priority: High - Problem List Review Problem List Initiated/Reviewed/Updated: Yes - My Orders Last 24 Hours: My Active Orders 09/05/17 20:40 CULTURE URINE [RM] Stat - Assessment/Plan Last 24 Hours: My Active Orders 09/05/17 20:40 CULTURE URINE [RM] Stat Plan: Urinary Tract Infection -urine culture pending -Rocephin 1 gram IV in ER -Keflex 500mg take 3 times a day for 10 days; start in the morning -Pyridium 200mg take 3 time a day for bladder spasm or bladder pain /pressure drink plenty of fluids, rest, take medications as directed follow up with Primary Care in 7 to 10 days for recheck return to ER if has increased pain, fever , chills, nausea, vomiting or not improved.
[2017-09-05] MEDS ORDERED: cefTRIAXone 1 GM, Lidocaine 1% 2.1 ML IM ONE ×2 (21:00)
== END 2017-09-05 21:33 | disposition home or self-care (01) ==
LOC: JP.ED 18:30
DX: N39.0 Urinary tract infection, site not specified (principal); I10 Essential (primary) hypertension; Z88.0 Allergy status to penicillin; Z88.5 Allergy status to narcotic agent; Z79.899 Other long term (current) drug therapy
CPT/HCPCS: 81001; 87086; 96365; 99284; J0696

== ENCOUNTER 2017-09-13 11:36 | Emergency (ER) | payer MEDICARE, OTHER ==
--- NOTE | 2017-09-13 12:31 | EDM.PDOC ---
ED HPI GENERAL MEDICAL PROBLEM - General Chief Complaint: General Stated Complaint: FROM THE CLINIC Time Seen by Provider: 09/13/17 12:26 Source of Information: Reports: Patient History Limitations: Reports: No Limitations - History of Present Illness INITIAL COMMENTS - FREE TEXT/NARRATIVE: Pt arrived with a history of having a low bp when she was seen at the clinic. She had lab work there and she did not have aot of unusual labs. She did have a recent uti. Pt stes she has a very variable bp. Onset: Gradual Duration: Day(s): Associated Symptoms: Reports: Shortness of Breath - Related Data Allergies Allergy/AdvReac Type Severity Reaction Status Date / Time Penicillins Allergy Unknown Unknown Verified 09/13/17 11:58 hydromorphone HCl AdvReac Unknown unknown Verified 09/13/17 11:58 [From Dilaudid] Home Meds: Home Meds Tylenol 500 mg PO BEDTIME PRN 01/06/13 [History] Chlorthalidone 1 tab PO DAILY 05/19/17 [History] Methimazole 5 mg PO DAILY 05/19/17 [History] Metoprolol Succinate 50 mg PO BID 05/25/17 [History] Sertraline [Zoloft] 1 tab PO DAILY 05/25/17 [History] Valsartan 1 tab PO DAILY 05/25/17 [History] Fluconazole [Diflucan] 100 mg PO ASDIRECTED 09/13/17 [History] Past Medical History HEENT History: Reports: Cataract Cardiovascular History: Reports: Hypertension Gastrointestinal History: Reports: Chronic Constipation Genitourinary History: Reports: Other (See Below) Other Genitourinary History: recent yeast infection [employer] History: Reports: Other (See Below) Other OB/BYN History: hysterectomy Musculoskeletal History: Reports: Back Pain, Chronic Neurological History: Reports: Vertigo Endocrine/Metabolic History: Reports: Hypothyroidism - Infectious Disease History Infectious Disease History: Reports: Chicken Pox, Mumps - Past Surgical History HEENT Surgical History: Reports: Tonsillectomy Cardiovascular Surgical History: Reports: None GI Surgical History: Reports: Appendectomy, Other (See Below) Other GI Surgeries/Procedures: rectocele Female Surgical History: Reports: Hysterectomy Endocrine Surgical History: Reports: Thyroidectomy Neurological Surgical History: Reports: Spinal Fusion, Thoracic Spine Musculoskeletal Surgical History: Reports: Knee Replacement Social & Family History - Family History Family Medical History: Noncontributory - Tobacco Use Smoking Status *Q: Never Smoker - Caffeine Use Caffeine Use: Reports: Coffee Other Caffeine Use: 1 cup a day - Recreational Drug Use Recreational Drug Use: No - Living Situation & Occupation Living situation: Reports: Occupation: Retired (lives with . both retired and active. 5 adult children) ED ROS GENERAL - Review of Systems Review Of Systems: See Below Constitutional: Reports: No Symptoms HEENT: Reports: No Symptoms Respiratory: Reports: No Symptoms Cardiovascular: Reports: Other (pt had a low bp at the clinic today. She did not jeremy her bp pills this am. ) Endocrine: Reports: No Symptoms GI/Abdominal: Reports: No Symptoms : Reports: No Symptoms Musculoskeletal: Reports: No Symptoms Skin: Reports: No Symptoms ED EXAM, GENERAL - Physical Exam Exam: See Below Free Text/Narrative:: pt arrived with a low bp and feeling slightly dizzy. She was sent from the clinic Exam Limited By: No Limitations General Appearance: Alert, Anxious, Mild Distress Ears: Normal TMs Nose: Normal Inspection Throat/Mouth: Normal Inspection Head: Atraumatic Neck: Normal Inspection Respiratory/Chest: No Respiratory Distress, Other (pt had o2 sats at 98) Cardiovascular: Regular Rate, Rhythm GI/Abdominal: Soft, Non-Tender Rectal (Female) Exam: Deferred Back Exam: Normal Inspection Extremities: Normal Inspection Neurological: Alert, Oriented, Normal Cognition Psychiatric: Normal Affect Course - Vital Signs Last Recorded V/S: Last Vital Signs Temp 36.5 C 09/13/17 11:56 Pulse 59 L 09/13/17 13:41 Resp 12 09/13/17 13:41 BP 141/57 H 09/13/17 13:41 Pulse Ox 98 09/13/17 13:41 - Orders/Labs/Meds Orders: Active Orders 24 hr Category Date Time Status EKG Documentation Completion [RC] ASDIRECTED Care 09/13/17 13:32 Active CULTURE URINE [RM] Stat Lab 09/13/17 12:53 Received UA W/MICROSCOPIC [URIN] Urgent Lab 09/13/17 12:39 Ordered EKG 12 Lead [EK] Routine Ther 09/13/17 13:32 Ordered Labs: Laboratory Tests 09/13/17 09/13/17 09/13/17 Range/Units 12:31 12:39 12:51 C-Reactive Protein 0.67 H (0.0-0.3) mg/dL TSH, Ultra Sensitive 3.037 (0.358-3.740) uIU/mL Urine Color Yellow Urine Appearance Cloudy Urine pH 5.0 (4.5-8.0) Ur Specific [place] 1.015 (1.008-1.030) Urine Protein 30 H (NEGATIVE) mg/dL Urine Glucose (UA) Normal (NEGATIVE) mg/dL Urine Ketones Negative (NEGATIVE) mg/dL Urine Occult Blood Large (NEGATIVE) Urine Nitrite Negative (NEGATIVE) Urine Bilirubin Negative (NEGATIVE) Urine Urobilinogen Normal (NORMAL) mg/dL Ur Leukocyte Esterase Large (NEGATIVE) Urine RBC 20-30 H (0-5) Urine WBC 20-30 H (0-5) Ur Epithelial Cells Few Amorphous Sediment Few Urine Bacteria Not seen Urine Mucus Not seen - Re-Assessments/Exams Free Text/Narrative Re-Assessment/Exam: 09/13/17 14:38 bp was 167/80 on arrival. She was feeling ok. Her lab work was good. Her urine showed a possible infection and her urine was cultured. Her ekg was normal. 09/13/17 14:40 Departure - Departure Time of Disposition: 14:40 Disposition: Home, Self-Care 01 Condition: Fair Clinical Impression: Hypotension - Discharge Information Referrals: Gadiel Ortiz MD [Primary Care Provider] - Forms: ED Department Discharge Care Plan Goals: will notfy of the urine culture results. She has a yeast infection and will not use antibiotics unless her urine culture is positive., decrease metorprol 25mg tid instead of 50mg Do not take unless her bp is greater than 130. Appt with Dr ortiz in 4-5 days. - My Orders Last 24 Hours: My Active Orders 09/13/17 12:39 UA W/MICROSCOPIC [URIN] Urgent 09/13/17 12:53 CULTURE URINE [RM] Stat 09/13/17 13:32 EKG Documentation Completion [RC] ASDIRECTED EKG 12 Lead [EK] Routine - Assessment/Plan Last 24 Hours: My Active Orders 09/13/17 12:39 UA W/MICROSCOPIC [URIN] Urgent 09/13/17 12:53 CULTURE URINE [RM] Stat 09/13/17 13:32 EKG Documentation Completion [RC] ASDIRECTED EKG 12 Lead [EK] Routine
[2017-09-13 13:42] VITALS: BP 141/57
== END 2017-09-13 15:15 | disposition home or self-care (01) ==
LOC: JP.ED 11:36
DX: I95.9 Hypotension, unspecified (principal); I10 Essential (primary) hypertension; E03.9 Hypothyroidism, unspecified; Z79.899 Other long term (current) drug therapy; Z88.0 Allergy status to penicillin; Z88.8 Allergy status to other drugs, medicaments and biological substances
CPT/HCPCS: 36415; 81001; 84443; 86140; 87086; 93005; 99284-25